=== PATIENT | male | born 1940 | race Caucasian/White ===

== ENCOUNTER 2016-09-22 11:14 | Inpatient (IN) | payer MEDICARE, OTHER ==
[~2016-09-22] VITALS: Ht 180.3 cm; Wt 128.0 kg
[2016-09-22] VITALS (21 sets, daily range): BP systolic 112–185; BP diastolic 72–103; PULSE 96–146; RESP 17–39; TEMP 98.6–99.2; O2SAT 90–95
[~2016-09-22 11:14] MED LIST: B-COTAB41 PO; CALCIUM MG ZINC; FISH1000 PO; HYDR-3580 PO; MULTCAP13 PO; NIAC500T5 PO; OXYB5TAB PO; RED600TA PO; TEST200I12 IM; TRAM100T19 PO; VITA-13 PO; VITA100017 PO
--- NOTE | 2016-09-22 11:25 | PD ---
HPI Chief Complaint: shortness of breath Time Seen by Provider: 11:21 Travel History International Travel<30 days: No Contact w/Intl Traveler<30days: No Traveled to known affect area: No History of Present Illness HPI 76-year-old male with history of no significant past medical issues, presents to the ER for not feeling well over last few days, and today was doing water aerobics when he started having worsening in shortness of breath, coughing, wheezing. He denies any recent fevers, chest pains, or other symptoms. He denies any previous history of shortness of breath. He has been sleeping on one to 2 pillows recently. Modifying Factors: None Associated Signs & Symptoms: Shortness of breath Risk Factors: None PFSH Past Medical History Cancer: No Cardiovascular Problems: No Diabetes: No Diminished Hearing: No Endocrine: No Genitourinary: No Hepatitis: No Hiatal Hernia: No Immune Disorder: No Musculoskeletal: Yes (BACK) Neurologic: Yes (sciatica) Psychiatric: No Respiratory: No Thyroid Disease: No Past Surgical History Abdominal Surgery: Yes (APPY) Joint Replacement: Yes (right ankle fusion) Oral Surgery: Yes (NASAL POLYPS) Social History Alcohol Use: Yes (socially) Tobacco Use: No Substance Use: No Allergies-Medications (Allergen,Severity, Reaction): Coded Allergies: Penicillin (Verified Allergy, Severe, Swelling, 09/22/16) i swell up everywhere Reported Meds & Prescriptions Reported Meds & Active Scripts Active Reported Depotestosterone 200 Mg Vial (Testosterone Cypionate) 200 Mg/Ml Oil 200 Mg IM MONTHLY INJECT 1 ML IM MONTHLY Niacin 500 Mg Tab 500 Mg PO DIRECTED TAKES Sun Red Yeast Rice (Red Yeast Rice Extract) 600 Mg Tab 1,000 Mg PO BID Lortab 7.5/325 Tab (Hydrocodone-Acetaminophen) 7.5 Mg/325 Mg Tab 1 Tab PO BID [Calcium Mg Zinc] 2 Tab DAILY Multi Complete (Multiple Vitamins W/ Minerals) Complete Cap 1 PO DAILY Fish Oil 1,000 Mg Cap 1,000 Mg PO Vitamin D3 (Cholecalciferol) 1,000 Unit Tab 4,000 Unit PO DAILY Vitamin C (Ascorbic Acid) 1,000 Mg Tab 1,000 Mg PO BID Vitamin B-Complex (Multivitamins/Vitamin B Complex) Vitamin Tab 1 Tab PO DAILY Oxybutynin Chloride 5 Mg Tab 5 Mg PO BID Tramadol HCl ER (Tramadol HCl) 100 Mg Tab 50 Mg PO BID Review of Systems Except as stated in HPI: all other systems reviewed are Neg Physical Exam Narrative GENERAL: Well-developed elderly white male in mild respiratory distress. Awake and oriented 3. SKIN: Focused skin assessment warm/dry. HEAD: Atraumatic. Normocephalic. EYES: Pupils equal and round. No scleral icterus. No injection or drainage. ENT: No nasal bleeding or discharge. Mucous membranes pink and moist. NECK: Trachea midline. No JVD. CARDIOVASCULAR: Regular rate and rhythm. No murmur appreciated. RESPIRATORY: Moderate accessory muscle use. With notable wheezes throughout and rails at the bases bilaterally. Breath sounds equal bilaterally. GASTROINTESTINAL: Abdomen soft, non-tender, nondistended. Hepatic and splenic margins not palpable. MUSCULOSKELETAL: No obvious deformities. No clubbing. No cyanosis. Bilateral trace pitting edema the legs. NEUROLOGICAL: Awake and alert. No obvious cranial nerve deficits. Motor grossly within normal limits. Normal speech. PSYCHIATRIC: Appropriate mood and affect; insight and judgment normal. Data Data Last Documented VS Vital Signs Date Time Temp Pulse Resp B/P Pulse Ox O2 Delivery O2 Flow Rate FiO2 09/22/16 12:25 122 32 155/93 94 BiPAP 60 09/22/16 11:31 15 09/22/16 11:25 99.2 Orders Complete Blood Count With Diff (09/22/16 11:21) Comprehensive Metabolic Panel (09/22/16 11:21) B-Type Natriuretic Peptide (09/22/16 11:21) Act Partial Throm Time (Ptt) (09/22/16 11:21) Prothrombin Time / Inr (Pt) (09/22/16 11:21) Magnesium (Mg) (09/22/16 11:21) Ckmb (Isoenzyme) Profile (09/22/16 11:21) Troponin I (09/22/16 11:21) Iv Access Insert/Monitor (09/22/16 11:21) Electrocardiogram (09/22/16 11:21) Ecg Monitoring (09/22/16 11:21) Oximetry (09/22/16 11:21) Oxygen Administration (09/22/16 11:21) Chest, Single Ap (09/22/16 11:21) Sodium Chloride 0.9% Flush (Ns Flush) (09/22/16 11:30) Furosemide Inj (Lasix Inj) (09/22/16 11:30) Arterial Blood Gas (Abg) (09/22/16 ) Resp Bipap / Cpap Non Invas Vt (09/22/16 ) Lactic Acid Sepsis Protocol (09/22/16 11:40) Blood Culture (09/22/16 11:40) Ceftriaxone Inj (Rocephin Inj) (09/22/16 12:03) Azithromycin Inj (Zithromax Inj) (09/22/16 12:03) Admit Order (Ed Use Only) (09/22/16 12:16) Labs Laboratory Tests Test 09/22/16 09/22/16 09/22/16 11:35 11:45 11:50 White Blood Count 12.5 TH/MM3 Red Blood Count 6.53 MIL/MM3 Hemoglobin 19.8 GM/DL Hematocrit 59.3 % Mean Corpuscular Volume 90.9 FL Mean Corpuscular Hemoglobin 30.3 PG Mean Corpuscular Hemoglobin 33.3 % Concent Red Cell Distribution Width 14.0 % Platelet Count 232 TH/MM3 Mean Platelet Volume 10.4 FL Neutrophils (%) (Auto) 74.2 % Lymphocytes (%) (Auto) 16.5 % Monocytes (%) (Auto) 8.2 % Eosinophils (%) (Auto) 0.6 % Basophils (%) (Auto) 0.5 % Neutrophils # (Auto) 9.3 TH/MM3 Lymphocytes # (Auto) 2.1 TH/MM3 Monocytes # (Auto) 1.0 TH/MM3 Eosinophils # (Auto) 0.1 TH/MM3 Basophils # (Auto) 0.1 TH/MM3 CBC Comment DIFF FINAL Differential Comment Prothrombin Time 13.4 SEC Prothromb Time International 1.2 RATIO Ratio Activated Partial 28.9 SEC Thromboplast Time B-Type Natriuretic Peptide 255 PG/ML Lactic Acid Level 2.4 mmol/L Blood Gas Puncture Site RT RADIAL Blood Gas Patient Temperature 98.6 Blood Gas HCO3 27 mmol/L Blood Gas Base Excess 1.4 mmol/L Blood Gas Oxygen Saturation 95 % Arterial Blood pH 7.31 Arterial Blood Partial 56 mmHg Pressure CO2 Arterial Blood Partial 100 mmHG Pressure O2 Arterial Blood Oxygen Content 27.8 Vol % Arterial Blood 0.9 % Carboxyhemoglobin Arterial Blood Methemoglobin 0.7 % Blood Gas Hemoglobin 20.8 G/DL Oxygen Delivery Device NRB Blood Gas Liter Flow 15 L/M MDM Medical Decision Making Medical Screen Exam Complete: Yes Emergency Medical Condition: Yes Medical Record Reviewed: Yes Interpretation(s) Laboratory Tests Test 09/22/16 09/22/16 09/22/16 11:35 11:45 11:50 White Blood Count 12.5 TH/MM3 (4.0-11.0) Red Blood Count 6.53 MIL/MM3 (4.50-5.90) Hemoglobin 19.8 GM/DL (13.0-17.0) Hematocrit 59.3 % (39.0-51.0) Neutrophils (%) (Auto) 74.2 % (16.0-70.0) Monocytes (%) (Auto) 8.2 % (0.0-8.0) Neutrophils # (Auto) 9.3 TH/MM3 (1.8-7.7) Monocytes # (Auto) 1.0 TH/MM3 (0-0.9) Prothrombin Time 13.4 SEC (9.8-11.6) B-Type Natriuretic Peptide 255 PG/ML (0-100) Lactic Acid Level 2.4 mmol/L (0.4-2.0) Blood Gas HCO3 27 mmol/L (22-26) Arterial Blood pH 7.31 (7.380-7.420) Arterial Blood Partial 56 mmHg (38-42) Pressure CO2 Arterial Blood Oxygen Content 27.8 Vol % (12.0-20.0) Blood Gas Hemoglobin 20.8 G/DL (12.0-16.0) Last 24 hours Impressions Chest X-Ray 09/22/16 1121 Signed Impressions: Service Date/Time: Thursday, September 22, 2016 11:48 - CONCLUSION: Moderate congestive failure. Agustín Abrams MD FACR Differential Diagnosis Shortness of breathCOPD versus pneumonia versus CHF versus bronchitis Narrative Course Chest x-ray shows bilateral pulmonary edema. Lasix was given in the ER and patient was put on BiPAP. At this point, lab work returns showing significant white count elevation of uncertain etiology. Cultures were drawn and antibiotics were given as a precaution. Patient has no previous history of CHF. Patient will need further evaluation. Case was discussed with Dr. Rodas for admission. He has recommended ICU admission especially with patient being on BiPAP. Aggregate critical care time was 25 minutes. Time to perform other separately billable procedures was not included in the critical care time. My time did not include minutes spent treating any other patients simultaneously or on activities that did not directly contribute to the patient's treatment. The services I provided to this patient were to treat and/or prevent clinically significant deterioration that could result in: Respiratory failure, sepsis, I provided critical care services requiring my management, as noted below: Chart data review, documentation time, medication orders and management, vital sign assessments/reviewing monitor data, ordering and reviewing lab tests, ordering and interpreting/reviewing x-rays and diagnostic studies, care of the patient and discussion of the patient with the admitting physicians. Sepsis Criteria SIRS Criteria (2 or more): Heart rate over 90, RR > 20 or PaCO2 < 32, WBC > 05516, < 4000 or > 10% bands Severe Sepsis (+one): Lactate >2 Diagnosis Primary Impression: Pulmonary edema Additional Impressions: Leukocytosis Sepsis Admitting Information Admitting Physician Requests: it Saba Almodovar MD Sep 22, 2016 11:25
[2016-09-22] MEDS ORDERED: SODIUM CHLORIDE 0.9% FLUSH 10 ML FLUSH IVF PRN (11:30)
[2016-09-22] MEDS ORDERED: FUROSEMIDE 40 MG/4 ML VIAL IVP ONE (11:30)
[2016-09-22 11:48] LABS: AUTOMATED NEUTROPHIL # 9.3 TH/MM3 (1.8-7.7); BASOPHIL # 0.1 TH/MM3 (0-0.2); BASOPHIL % 0.5 % (0.0-2.0); EOSINOPHIL # 0.1 TH/MM3 (0-0.4); EOSINOPHIL % 0.6 % (0.0-4.0); HEMATOCRIT 59.3 % (39.0-51.0); HEMO FLAGS DIFF FINAL; LYMPH % 16.5 % (9.0-44.0); LYMPHOCYTE # 2.1 TH/MM3 (1.0-4.8); MEAN CELL VOLUME 90.9 FL (80.0-100.0); MEAN CORPUSCULAR HEMOGLOBIN 30.3 PG (27.0-34.0); MEAN CORPUSCULAR HGB CONC 33.3 % (32.0-36.0); MONO % 8.2 % (0.0-8.0); NEUT % 74.2 % (16.0-70.0); PLATELET COUNT 232 TH/MM3 (150-450); RED BLOOD COUNT 6.53 MIL/MM3 (4.50-5.90); WHITE BLOOD COUNT 12.5 TH/MM3 (4.0-11.0)
[2016-09-22 11:57] LABS: INTERNATIONAL NORMALIZED RATIO 1.2 RATIO; PROTHROMBIN TIME - PATIENT 13.4 SEC (9.8-11.6)
[2016-09-22 11:58] LABS: APTT (PATIENT) 28.9 SEC (24.3-30.1)
[2016-09-22 12:00] LABS: BLOOD GAS BASE EXCESS 1.4 mmol/L (-2-2); BLOOD GAS CARBOXYHEMOGLOBIN 0.9 % (0-4); BLOOD GAS HCO3 27 mmol/L (22-26); BLOOD GAS METHEMOGLOBIN 0.7 % (0-2); BLOOD GAS O2 HGB SATURATION 95 % (90-100); BLOOD GAS OXYGEN CONTENT 27.8 Vol % (12.0-20.0); BLOOD GAS PCO2 56 mmHg (38-42); BLOOD GAS PO2 100 mmHG (61-120); BLOOD GAS TOTAL HGB 20.8 G/DL (12.0-16.0); TEMP CORR TO 98.6
[2016-09-22 12:01] LABS: CRITICAL VALUE YES; DRAW SITE RT RADIAL; LITER FLOW 15 L/M; NUMBER OF ARTERIAL PUNCTURES 1; OXYGEN DEVICE NRB; STAT YES; ULNAR PULSE PRESENT
[2016-09-22] MEDS ORDERED: AZITHROMYCIN INJ 500 MG in SODIUM CHLOR 0.9% 250 ML INJ 250 ML IV STA (12:03)
[2016-09-22] MEDS ORDERED: cefTRIAXone INJ 2,000 MG in SODIUM CHLORIDE 0.9% INJ 100 ML IV STA (12:03)
--- NOTE | 2016-09-22 12:07 | RADRPT ---
EXAM DATE/TIME: 09/22/2016 11:48 [facility] COMPARISON: CHEST SINGLE AP, January 12, 2013, 4:35. INDICATIONS : Shortness of breath. MEDICAL HISTORY : None. SURGICAL HISTORY : None. ENCOUNTER: Initial ACUITY: 1 day PAIN SCORE: 0/10 LOCATION: Bilateral chest FINDINGS: Moderate congestive failure is present with cardiomegaly. There is no pleural effusion or other cons olidation. The portion of the bony skeleton visualized is unremarkable. CONCLUSION: Moderate congestive failure. Agustín Abrams MD FACR on September 22, 2016 at 12:04 Board Certified Radiologist. This report was verified electronically.
[2016-09-22 12:36] LABS: ALKALINE PHOSPHATASE 60 U/L (45-117); ALT (GPT) 43 U/L (12-78); ANION GAP 8 MEQ/L (5-15); AST (GOT) 71 U/L (15-37); BICARBONATE 28.2 MEQ/L (21.0-32.0); BLOOD UREA NITROGEN 15 MG/DL (7-18); CHLORIDE 103 MEQ/L (98-107); CREATINE KINASE 232 U/L (39-308); GLOMERULAR FILTRATION RATE 52 ML/MIN (>89); SODIUM (NA) 139 MEQ/L (136-145); TOTAL BILIRUBIN ADULT 0.8 MG/DL (0.2-1.0)
[2016-09-22 12:38] LABS: POTASSIUM 4.6 MEQ/L (3.5-5.1)
[2016-09-22] MEDS ORDERED: TRAM50TA PO (12:40)
[2016-09-22] MEDS ORDERED: TEST1INJ3 IM (12:40)
[2016-09-22 12:56] LABS: CKMB 13.1 NG/ML (0.5-3.6)
[2016-09-22] MEDS ORDERED: OXYB5TAB10 PO (13:00)
[2016-09-22] MEDS ORDERED: ALPRAZolam 0.25 MG TAB PO PRN (13:00)
[2016-09-22] MEDS ORDERED: SODIUM CHLORIDE 0.9% FLUSH 10 ML FLUSH IV FLUSH PRN (13:00)
[2016-09-22] MEDS: ASPIRIN 325 MG TAB PO SCH (13:38)
[2016-09-22] MEDS: ENOXAPARIN SODIUM 120 MG/0.8 ML SYRINGE SQ SCH (13:39)
--- NOTE | 2016-09-22 13:41 | HHI.HP ---
HPI Service [facility] Hospitalists Primary Care Physician Dr. Olena Whitley Admission Diagnosis new onset CHF/respiratory distress/hypoxia Chief Complaint: SOB Travel History International Travel<30 Days: No Contact w/Intl Traveler <30 Da: No Traveled to Known Affected Are: No History of Present Illness Mr. 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 He states that yesterday he started noticing more SOB with exertion. Then today he was doing water aerobics when he started having worsening shortness of breath, coughing, wheezing. This prompted [facility] to be called and pt was brought to the ED for further workup. Chest x-ray showed bilateral pulmonary edema. ABG noted pCO2 56, pH 7.31. Pt was given Lasix 40mg IV in the ED and patient was put on BiPAP. Cultures were drawn and antibiotics were given in the ED secondary to elevated WBC count. Patient has no previous history of CHF. Upon arrival his HR was noted to be in the 130-140's and currently on telemetry he is in the 110's but appears to be A. flutter. Pt denies any recent fevers, cough, congestion, chest pains, or palpitations. He denies any previous history of shortness of breath. He has been sleeping on one to 2 pillows recently. He has had some weight loss over the last 6 months which has been intentional. He reports having lost 25-30lbs. He does not feel that his legs are swollen. He reports that with regard to his polycythemia he had been referred for phlebotomy but that not followup on that. Review of Systems Constitutional: DENIES: Fever, Chills, Dizziness Respiratory: COMPLAINS OF: Shortness of breath, DENIES: Cough, Sputum production Cardiovascular: COMPLAINS OF: Dyspnea on Exertion, DENIES: Chest pain, Palpitations, Lower Extremity Edema Gastrointestinal: DENIES: Abdominal pain, Constipation, Nausea, Vomiting Genitourinary: DENIES: Hematuria, Dysuria Musculoskeletal: DENIES: Joint pain, Back pain Integumentary: DENIES: Rash Neurologic: DENIES: Headache Psychiatric: DENIES: Confusion Past Family Social History Past Medical History Secondary polycythemia vera (?secondary to chronic testosterone use) HTN Chronic LE edema Obesity Hypogonadism Hyperlipidemia (LDL 120 in 01/2016) Lumbar stenosis/radiculopathy Multinodular non-toxic goiter Hx of tobacco use B12 deficiency Past Surgical History Left total hip arthroplasty Ankle surgery Reported Medications Ditropan (Oxybutynin Chloride) 5 Mg Tab 5 Mg PO Testosterone Cypionate Inj (Testosterone Cypionate) 100 Mg/Ml Inj 200 Mg IM MONTHLY Tramadol (Tramadol HCl) 50 Mg Tab 50 Mg PO PRN Allergies: Coded Allergies: Penicillin (Verified Allergy, Severe, Swelling, 09/22/16) i swell up everywhere Family History Father with hx of thyroid cancer and CAD/DE Social History Hx of heavy tobacco use, smoked 3-4ppd x 45 years, quit in 2002 Denies any alcohol or illicit drug use since 2013 Pt has 3 living children, 2 in [place], 1 in [facility] Physical Exam Vital Signs Vital Signs Date Time Temp Pulse Resp B/P Pulse Ox O2 Delivery O2 Flow Rate FiO2 09/22/16 12:25 122 32 155/93 94 BiPAP 60 09/22/16 11:50 96 BiPAP 60 09/22/16 11:31 140 39 95 Non-Rebreather 09/22/16 11:31 96 Non-Rebreather 15 100 09/22/16 11:27 139 29 180/103 93 09/22/16 11:25 99.2 146 29 185/103 93 Non-Rebreather Physical Exam GENERAL: This is a well-nourished, well-developed patient, on BiPAP. HEENT: Atraumatic. Normocephalic. No temporal or scalp tenderness. No scleral icterus. On BiPAP. NECK: Trachea midline. Mild JVD bilaterally. CARDIO: Tachy, irregular RESP: Decreased BS bilaterally. ABD: +BS, soft, non-tender, nondistended. EXT: Bilateral LE nonpitting edema. NEURO: Awake and alert. Motor and sensory grossly within normal limits. Normal speech. Laboratory Laboratory Tests Test 09/22/16 09/22/16 09/22/16 11:35 11:45 11:50 White Blood Count 12.5 Red Blood Count 6.53 Hemoglobin 19.8 Hematocrit 59.3 Mean Corpuscular Volume 90.9 Mean Corpuscular Hemoglobin 30.3 Mean Corpuscular Hemoglobin 33.3 Concent Red Cell Distribution Width 14.0 Platelet Count 232 Mean Platelet Volume 10.4 Neutrophils (%) (Auto) 74.2 Lymphocytes (%) (Auto) 16.5 Monocytes (%) (Auto) 8.2 Eosinophils (%) (Auto) 0.6 Basophils (%) (Auto) 0.5 Neutrophils # (Auto) 9.3 Lymphocytes # (Auto) 2.1 Monocytes # (Auto) 1.0 Eosinophils # (Auto) 0.1 Basophils # (Auto) 0.1 CBC Comment DIFF FINAL Differential Comment Prothrombin Time 13.4 Prothromb Time International 1.2 Ratio Activated Partial 28.9 Thromboplast Time Sodium Level 139 Potassium Level 4.6 Chloride Level 103 Carbon Dioxide Level 28.2 Anion Gap 8 Blood Urea Nitrogen 15 Creatinine 1.32 Estimat Glomerular Filtration 52 Rate Random Glucose 124 Calcium Level 9.6 Magnesium Level 2.0 Total Bilirubin 0.8 Aspartate Amino Transf 71 (AST/SGOT) Alanine Aminotransferase 43 (ALT/SGPT) Alkaline Phosphatase 60 Total Creatine Kinase 232 Creatine Kinase MB 13.1 Troponin I 2.91 B-Type Natriuretic Peptide 255 Total Protein 7.5 Albumin 3.6 Lactic Acid Level 2.4 Blood Gas Puncture Site RT RADIAL Blood Gas Patient Temperature 98.6 Blood Gas HCO3 27 Blood Gas Base Excess 1.4 Blood Gas Oxygen Saturation 95 Arterial Blood pH 7.31 Arterial Blood Partial 56 Pressure CO2 Arterial Blood Partial 100 Pressure O2 Arterial Blood Oxygen Content 27.8 Arterial Blood 0.9 Carboxyhemoglobin Arterial Blood Methemoglobin 0.7 Blood Gas Hemoglobin 20.8 Oxygen Delivery Device NRB Blood Gas Liter Flow 15 Date/Time Procedure Status Source Growth 09/22/16 11:55 Aerobic Blood Culture Received Blood Peripheral Pending 09/22/16 11:55 Anaerobic Blood Culture Received Blood Peripheral Pending Result Diagram: 09/22/16 1135 09/22/16 1135 Imaging Last Impressions Chest X-Ray 09/22/16 1121 Signed Impressions: Service Date/Time: Thursday, September 22, 2016 11:48 - CONCLUSION: Moderate congestive failure. 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 - Chest x-ray showed bilateral pulmonary edema. - ABG noted pCO2 56, pH 7.31. Pt was given Lasix 40mg IV in the ED and patient was put on BiPAP. - Cultures were drawn and antibiotics were given in the ED secondary to elevated WBC count. - Upon arrival his HR was noted to be in the 130-140's and currently on telemetry he is in the 110's but appears to be A. flutter. - Pts troponin was noted to be elevated at 2.91 and CKMB 13.1 - Consult Cardiology, case discussed between Dr. Rodas and Dr. Quinones , pt without cardiac history but does have risk factors for CAD with previous heavy tobacco use, obesity - Serial CE and EKGs - 2D echo - Give ASA and Lovenox 120mg Q12H - Wean off BiPAP as tolerated - Cont. Lasix 40mg IV BID - Monitor BMP - Telemetry, HR seems to be decreasing as his breathing improves, will continue to monitor - Supportive care (2) Elevated troponin Status: Acute Plan: - See above. 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 - Monitor CBC Assessment and Plan Patient examined. Assessment and plan formulated with Serene Kothari PA-C. I agree with the above. AMI and acute systolic chf. polycythemia with pcp diagnosis of polycythemia related to testosterone. pt was supposed to have phlebotomy but he was angered by the nurse who was to perform it and so he left per his account. I spoke to cardiology as I was concerned with some st elevation in precordial leads. ?thrombosis related to the polycythemia. we gave asa and lovenox. stat echo shows low ef of 25%. cardiology will call hematology to decide if urgent phlebotomy should be done. No cp. He is being weaned of bipap. iv lasix Physician Certification 2 Midnight Certification Type: Admission for Inpatient Services Order for Inpatient Services The services are ordered in accordance with Medicare regulations or non- Medicare payer requirements, as applicable. In the case of services not specified as inpatient-only, they are appropriately provided as inpatient services in accordance with the 2-midnight benchmark. Estimated LOS (days): 3 3 days is the estimated time the patient will need to remain in the hospital, assuming treatment plan goals are met and no additional complications. Post-Hospital Plan: Not yet determined Problem Qualifiers (1) Pulmonary edema: Qualified Code: J81.0 - Acute pulmonary edema Serene Kothari Sep 22, 2016 13:41 Jaron Rodas MD Sep 22, 2016 20:02
[2016-09-22] MEDS ORDERED: ACETAMINOPHEN 325 MG TAB PO PRN (13:45)
[2016-09-22] MEDS ORDERED: ONDANSETRON HCL 4 MG/2 ML VIAL IV PRN (13:45)
[2016-09-22 13:48] LABS: LACTIC ACID GHOST NOT REPORTABLE
[2016-09-22 16:30] LABS: CKMB 76.9 NG/ML (0.5-3.6)
--- NOTE | 2016-09-22 17:17 | ECHRPT ---
Indication: Transient cerebral ischemic attack, unspecified CONCLUSIONS Normal left ventricular size. There is assymetric septal hypertrophy. The left ventricular systolic function is severely reduced with an estimated ejection fraction in th e range of 20-25%. poor image quality Mild mitral valve regurgitation. There is mild tricuspid valve regurgitation. BP: / HR: Rhythm: MEASUREMENTS (Male / Female) Normal Values Technical Quality:Fair 2D ECHO LV Diastolic Diameter PLAX 5.7 cm 4.2 - 5.9 / 3.9 - 5.3 cm LV Systolic Diameter PLAX 5.2 cm IVS Diastolic Thickness 1.7 cm 0.6 - 1.0 / 0.6 - 0.9 cm LVPW Diastolic Thickness 1.0 cm 0.6 - 1.0 / 0.6 - 0.9 cm LV Relative Wall Thickness 0.5 RV Internal Dim ED PLAX 2.9 cm M-MODE Aortic Root Diameter MM 4.2 cm LA Systolic Diameter MM 3.2 cm LA Ao Ratio MM 0.8 AV Cusp Separation MM 1.7 cm FINDINGS LEFT VENTRICLE Normal left ventricular size. There is assymetric septal hypertrophy. The left ventricular systolic function is severely reduced with an estimated ejection fraction in th e range of 20-25%. MITRAL VALVE Structurally normal mitral valve. Mild mitral valve regurgitation. TRICUSPID VALVE Structurally normal tricuspid valve. There is mild tricuspid valve regurgitation. Uziel Worley MD, FACC, [facility] [place] (Electronically Signed) Final Date:22 September 2016 17:16
[2016-09-22] MEDS ORDERED: FUROSEMIDE 40 MG/4 ML VIAL IV PUSH SCH (18:00)
[2016-09-22] MEDS ORDERED: PRASUGREL 10 MG TAB PO ONE (18:45)
[2016-09-22] MEDS ORDERED: PILL SPLITTER OTHER PRN (19:00)
[2016-09-22 20:40] LABS: CKMB 133.1 NG/ML (0.5-3.6)
[2016-09-22] MEDS ORDERED: POTASSIUM CHLORIDE 20 MEQ CONTROLLED RELEASE TAB PO SCH (21:00)
[2016-09-22] MEDS ORDERED: SODIUM CHLOR 0.9% 250 ML INJ 250 ML IV ONE (21:30)
[2016-09-22] MEDS: ATORVASTATIN 40 MG TAB PO SCH (21:30)
[2016-09-22] MEDS: CARVEDILOL 3.125 MG TAB PO SCH (21:30)
[2016-09-22] MEDS: SODIUM CHLORIDE 0.9% FLUSH 10 ML FLUSH IV FLUSH SCH (21:31)
--- NOTE | 2016-09-22 21:43 | MB ---
cc: BALDEMAR MORA MD DATE OF CONSULTATION: 09/22/2016. REASON FOR CONSULTATION: Elevated troponin. HISTORY OF PRESENT ILLNESS: Mrs. Ricketts is a 76-year-old man who presented to the emergency room with shortness of breath. He reports to me that it started this morning. I recognize this is somewhat inconsistent with the previous emergency room record. The patient reports that he has not had any significant chest pain. He is currently feeling great. PAST MEDICAL HISTORY: Past medical history significant for: 1. Polycythemia. 2. Hypertension. 3. Lower extremity edema. 4. B12 deficiency. PAST SURGICAL HISTORY: Left total hip arthroplasty. OUTPATIENT MEDICATIONS: 1. Ditropan. 2. Testosterone. 3. Tramadol. ALLERGIES: PENICILLIN. FAMILY HISTORY: Positive for thyroid cancer and myocardial infarction. SOCIAL HISTORY: The patient is a former smoker. REVIEW OF SYSTEMS: Except for what is mentioned in the history of present illness, all twelve systems are negative. PHYSICAL EXAMINATION: VITAL SIGNS: Current vital signs are 100, 20, 113/79. GENERAL: In general, he is an obese man who is in no apparent distress. NECK: The neck is free from jugular venous distention. LUNGS: The lungs are bilaterally clear to auscultation. CARDIOVASCULAR: On cardiovascular examination, he has a normal S1 and S2. I do not appreciate any murmurs, rubs or gallops. ABDOMEN: The abdomen is soft. EXTREMITIES: Free from edema. CARDIOLOGY STUDIES: Echocardiogram shows an ejection fraction of 20% to 25%. EKG shows sinus rhythm with anterior S-T elevation LABORATORY DATA: Lab values significant for a white count of 12.5, hemoglobin of 19.8, platelet count of 232,000. The initial troponin was 2.9 and subsequent troponin was 13 with a CK-MB percent of 10. IMPRESSION: 1. Acute myocardial infarction - the patient does have a history of polycythemia. The risks and benefits of cardiac catheterization were discussed with the patient, particularly in light of his polycythemia, which does make both bleeding and thrombotic complications higher. He declines intervention. He does wish to be managed medically. 2. Polycythemia - An urgent consult has been placed to hematology. 3. Cardiomyopathy - The patient has an ischemic cardiomyopathy and will be started on beta blockade and PRICE inhibitors. Annmarie Ann/JCC /6:41 PM /9:36 PM
[2016-09-22] MEDS: OXYBUTYNIN CHLORIDE 5 MG TAB PO SCH (21:53)
--- NOTE | 2016-09-22 23:37 | MB ---
cc: LAWRENCE HAND DATE OF CONSULTATION 09/22/16 REASON FOR CONSULTATION A 76-year-old male with an acute myocardial infarction, congestive heart failure and polycythemia. PATIENT PROFILE The patient is a 76-year white male. He is . He has been twice. He has three children, two sons and one daughter. He was born in [place] and has lived in [place] for 20 years. 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 The patient stopped smoking 18 years ago and had smoked three to four packs of cigarettes per day for 30 years. Alcohol consists of two drinks per day. HISTORY OF PRESENT ILLNESS The patient is a 76-year-old male who describes himself as being in excellent health. He developed shortness of breath when he went to the [facility] and knew that there was something wrong. He had had increasing shortness of breath over a day or two. When he presented to the emergency room, he was felt to have an acute myocardial infarction with congestive heart failure. He was found to be polycythemic. On 09/22/2016 hemoglobin 19.8, hematocrit 59, white count 12,500, platelets 232,000 with a normal differential. In 2013, he had a hemoglobin of 16.8. In January of 2013, he had a hemoglobin of 17. He has no history of polycythemia vera. He does have some degree of chronic obstructive pulmonary disease. What is most important is the fact that for many years he has received testosterone injections. These injections have been administered every three weeks. Three months ago, his physician told him that he should undergo phlebotomies. At that time, the injections of testosterone was spaced out from every three weeks to every four weeks. The patient did not pursue the phlebotomies. PAST SURGICAL HISTORY 1. Removal of nasal polyps 2. Left hip replacement 3. Right ankle fracture. PAST MEDICAL HISTORY 1. Obesity 2. Arthritis 3. Urinary frequency, possibly from benign prostatic hypertrophy. MEDICATIONS Prior to admission 1. Oxybutynin 5 mg p.o. b.i.d. 2. Testosterone injections. The dose is listed as 200 mg but the patient is not sure if this is correct 3. Tramadol 50 mg p.o. q.8 h p.r.n. pain. ALLERGIES PENICILLIN FAMILY HISTORY Father 95. Mother 94. The patient has two sisters who are living. There is no history of any type of blood problem. REVIEW OF SYSTEMS No change in vision or hearing. He denies any chest pain but has had shortness of breath for the past several days. No change in bowel habits. No melena or hematochezia. Denies problems with urination. Minor arthritic pains. Review of systems otherwise unremarkable. LABORATORY DATA Additional laboratory studies - lytes, BUN and creatinine are unremarkable. IMAGING STUDIES Chest x-ray dated 09/22/2016 shows moderate congestive heart failure present with cardiomegaly. There is no pleural effusion or other consolidation. PHYSICAL EXAMINATION GENERAL: An obese gentleman. He is short of breath with mild exertion. VITAL SIGNS: Blood pressure is 113/80, respiratory rate is 24, pulse is 115, afebrile, O2 sat 91%. HEENT: Head is normocephalic. Sclerae and conjunctivae are normal. Oropharynx unremarkable. No adenopathy. HEART: Regular rhythm, rate 115. LUNGS: Few rales at the bases. ABDOMEN: Obese. No hepatosplenomegaly. EXTREMITIES: Trace edema. MUSCULOSKELETAL: No bone pain. NEUROLOGIC: No weakness. Cognition, affect normal. SKIN: Unremarkable. ASSESSMENT The patient has polycythemia. The Hemoglobin and hematocrit are elevated. The most likely explanation is testosterone. Another contributing factor would be chronic obstructive pulmonary disease. Primary thrombocytosis is less likely. RECOMMENDATIONS Given the congestive heart failure, polycythemia and myocardial infarction, I am going to remove a unit of blood. In order to prevent him from becoming hypotensive, he will receive 250 mL of normal saline solution over two hours to begin at the same time as the phlebotomy. He will have a CBC and platelet count tomorrow. I would like to bring down his hemoglobin and hematocrit to a more physiologic range. I very much doubt that he has polycythemia vera, but will order a KINGSLEY 2 mutation test. I told him that he should not take testosterone. He is in agreement. I have contacted Dr. Prisca Quinones who is his design architect and I have reviewed my recommendations with her. MD GERARD Santiago/ /9:38 PM /11:21 PM [email or web address]
[2016-09-23] VITALS (36 sets, daily range): BP systolic 85–157; BP diastolic 56–95; PULSE 85–100; RESP 10–37; TEMP 97.8–98.6; O2SAT 87–95
[2016-09-23] MEDS: ENOXAPARIN SODIUM 120 MG/0.8 ML SYRINGE SQ SCH ×2 (02:07→14:27)
[2016-09-23 04:54] LABS: AUTOMATED NEUTROPHIL # 10.6 TH/MM3 (1.8-7.7); BASOPHIL % 0.2 % (0.0-2.0); EOSINOPHIL % 0.2 % (0.0-4.0); HEMATOCRIT 54.9 % (39.0-51.0); HEMO FLAGS DIFF FINAL; LYMPH % 10.5 % (9.0-44.0); LYMPHOCYTE # 1.4 TH/MM3 (1.0-4.8); MEAN CELL VOLUME 89.8 FL (80.0-100.0); MEAN CORPUSCULAR HGB CONC 33.4 % (32.0-36.0); MONO % 10.8 % (0.0-8.0); NEUT % 78.3 % (16.0-70.0); PLATELET COUNT 179 TH/MM3 (150-450); RED BLOOD COUNT 6.11 MIL/MM3 (4.50-5.90); RED CELL DISTRIBUTION WIDTH 14.4 % (11.6-17.2); WHITE BLOOD COUNT 13.5 TH/MM3 (4.0-11.0)
[2016-09-23 05:20] LABS: BICARBONATE 29.9 MEQ/L (21.0-32.0); MAGNESIUM 1.8 MG/DL (1.5-2.5); POTASSIUM 3.8 MEQ/L (3.5-5.1)
[2016-09-23 05:22] LABS: HDL CHOLESTEROL 32.9 MG/DL (40.0-60.0)
--- NOTE | 2016-09-23 05:34 | RADRPT ---
EXAM DATE/TIME: 09/23/2016 04:13 [place] COMPARISON: CHEST SINGLE AP, September 22, 2016, 11:48. INDICATIONS : Shortness of breath, possible pulmonary disease. MEDICAL HISTORY : Congestive heart failure. SURGICAL HISTORY : None. ENCOUNTER: Subsequent ACUITY: 2 days PAIN SCORE: 0/10 LOCATION: Bilateral chest FINDINGS: Pulmonary edema pattern improved from September 22 with minimal residual basilar opacity. No significant e ffusion. Heart size enlarged. Mildly tortuous aorta. CONCLUSION: Improved pulmonary edema pattern since September 22. Elías Lopez MD on September 23, 2016 at 5:32 Board Certified Radiologist. This report was verified electronically.
--- NOTE | 2016-09-23 08:44 | PD.CARD.PN ---
Subjective Subjective Remarks Pt without complaints- I feel great Objective Medications Current Medications Medications (Trade) Dose Ordered Sig/Melissa Route Start Time Stop Time Status Last Admin (NS Flush) 2 ml BID IV FLUSH 09/22/16 21:00 09/22/16 21:31 (NS Flush) 2 ml UNSCH PRN IV FLUSH 09/22/16 13:00 (Aspirin) 325 mg DAILY PO 09/22/16 13:00 09/22/16 13:38 ([place] 7.5-325 Mg) 1 tab Q4H PRN PO 09/22/16 13:00 (Protonix) 40 mg DAILY PO 09/23/16 09:00 (Xanax) 0.25 mg TID PRN PO 09/22/16 13:00 (Lasix Inj) 40 mg BID@,18 IV PUSH 09/22/16 18:00 09/22/16 17:43 (Lovenox Inj) 120 mg Q12H SQ 09/22/16 14:00 09/23/16 02:07 (Ditropan) 5 mg BID PO 09/22/16 21:00 09/22/16 21:53 (Tylenol) 650 mg Q4H PRN PO 09/22/16 13:45 (Zofran Inj) 4 mg Q6H PRN IV 09/22/16 13:45 (Effient) 10 mg DAILY PO 09/23/16 09:00 (Lipitor) 40 mg HS PO 09/22/16 21:00 09/22/16 21:30 (KCl) 20 meq Q12HR PO 09/22/16 21:00 09/22/16 21:30 (Coreg) 3.125 mg Q12HR PO 09/22/16 21:00 09/22/16 21:30 (Prinivil) 2.5 mg DAILY PO 09/23/16 09:00 Miscellaneous 1 ea 1 ea UNSCH PRN OTHER 09/22/16 19:00 (NS 250 ml Inj) 250 ml @ 250 mls/hr BOLUS ONCE IV 09/23/16 08:30 09/23/16 09:29 UNV Vital Signs / I&O Vital Signs Date Time Temp Pulse Resp B/P Pulse Ox O2 Delivery O2 Flow Rate FiO2 09/23/16 06:52 93 Nasal Cannula 3.00 09/23/16 06:00 90 09/23/16 04:00 98.4 93 25 114/72 93 17 04:00 93 09/23/16 02:00 93 09/23/16 00:00 96 09/23/16 00:00 98.6 97 21 112/72 94 17 22:00 101 17 20:00 115 1617 20:00 98.7 115 33 112/75 94 17 19:24 93 Nasal Cannula 3.00 09/22/16 18:40 108 1617 18:21 105 1617 18:00 104 1617 17:40 101 33 113/79 91 1617 17:40 101 17 17:20 103 1617 17:20 103 25 117/81 93 1617 17:00 96 18 113/72 90 1617 17:00 96 17 16:40 108 24 124/82 93 1617 16:40 108 1617 16:40 108 24 124/82 93 1617 16:40 108 1617 16:20 101 1617 16:20 101 17 117/80 90 1617 16:20 101 17 117/80 90 1617 16:20 101 1617 16:00 110 17 16:00 110 31 122/83 92 1617 16:00 110 31 122/83 92 1617 16:00 110 17 15:50 98.6 1617 15:44 90 Nasal Cannula 4.00 17 14:30 95 Nasal Cannula 4.00 09/22/16 12:25 122 32 155/93 94 BiPAP 60 1617 11:50 95 60 16/17 11:50 96 BiPAP 60 09/22/17 11:31 140 39 95 Non-Rebreather 17 11:31 96 Non-Rebreather 15 100 17 11:27 139 29 180/103 93 1617 11:25 99.2 146 29 185/103 93 Non-Rebreather I/O 09/22/16 09/22/16 09/22/16 09/23/16 09/23/16 09/23/16 07:00 15:00 23:00 07:00 15:00 23:00 Intake Total 240 ml 730 ml Output Total 300 ml 650 ml 750.00 ml Balance -300 ml -410 ml -20.00 ml Intake Oral 240 ml 480 ml IV Total 250 ml Output Urine Total 300 ml 650 ml 450 ml Blood Draw 300.00 ml # Voids 1 Physical Exam GENERAL: Well developed, well nourished. No acute distress. HEENT: Jugular venous pressure is normal. CHEST: Lungs clear to auscultation bilaterally. Unlabored respiratory effort. CARDIAC: Regular rate and rhythm without S3, S4, or murmur. ABDOMEN: Soft, nontender, no hepatosplenomegaly. Bowel sounds present. EXTREMITIES: No clubbing, cyanosis, or edema. Laboratory Laboratory Tests Test 09/22/16 09/22/16 09/22/16 09/22/16 11:35 11:45 11:50 14:37 White Blood Count 12.5 TH/MM3 Red Blood Count 6.53 MIL/MM3 Hemoglobin 19.8 GM/DL Hematocrit 59.3 % Mean Corpuscular Volume 90.9 FL Mean Corpuscular Hemoglobin 30.3 PG Mean Corpuscular Hemoglobin 33.3 % Concent Red Cell Distribution Width 14.0 % Platelet Count 232 TH/MM3 Mean Platelet Volume 10.4 FL Neutrophils (%) (Auto) 74.2 % Lymphocytes (%) (Auto) 16.5 % Monocytes (%) (Auto) 8.2 % Eosinophils (%) (Auto) 0.6 % Basophils (%) (Auto) 0.5 % Neutrophils # (Auto) 9.3 TH/MM3 Lymphocytes # (Auto) 2.1 TH/MM3 Monocytes # (Auto) 1.0 TH/MM3 Eosinophils # (Auto) 0.1 TH/MM3 Basophils # (Auto) 0.1 TH/MM3 CBC Comment DIFF FINAL Differential Comment Prothrombin Time 13.4 SEC Prothromb Time International 1.2 RATIO Ratio Activated Partial 28.9 SEC Thromboplast Time Sodium Level 139 MEQ/L Potassium Level 4.6 MEQ/L Chloride Level 103 MEQ/L Carbon Dioxide Level 28.2 MEQ/L Anion Gap 8 MEQ/L Blood Urea Nitrogen 15 MG/DL Creatinine 1.32 MG/DL Estimat Glomerular Filtration 52 ML/MIN Rate Random Glucose 124 MG/DL Calcium Level 9.6 MG/DL Magnesium Level 2.0 MG/DL Total Bilirubin 0.8 MG/DL Aspartate Amino Transf 71 U/L (AST/SGOT) Alanine Aminotransferase 43 U/L (ALT/SGPT) Alkaline Phosphatase 60 U/L Total Creatine Kinase 232 U/L 766 U/L Creatine Kinase MB 13.1 NG/ML 76.9 NG/ML Troponin I 2.91 NG/ML 13.70 NG/ML B-Type Natriuretic Peptide 255 PG/ML Total Protein 7.5 GM/DL Albumin 3.6 GM/DL Lactic Acid Level 2.4 mmol/L Blood Gas Puncture Site RT RADIAL Blood Gas Patient Temperature 98.6 Blood Gas HCO3 27 mmol/L Blood Gas Base Excess 1.4 mmol/L Blood Gas Oxygen Saturation 95 % Arterial Blood pH 7.31 Arterial Blood Partial 56 mmHg Pressure CO2 Arterial Blood Partial 100 mmHG Pressure O2 Arterial Blood Oxygen Content 27.8 Vol % Arterial Blood 0.9 % Carboxyhemoglobin Arterial Blood Methemoglobin 0.7 % Blood Gas Hemoglobin 20.8 G/DL Oxygen Delivery Device NRB Blood Gas Liter Flow 15 L/M Creatine Kinase MB % 10.0 % Test 09/22/16 09/22/16 09/23/16 15:30 19:26 04:17 Nasal Screen MRSA (PCR) MRSA NOT DETECTED Total Creatine Kinase 1145 U/L Creatine Kinase MB 133.1 NG/ML Creatine Kinase MB % 11.6 % Troponin I 27.60 NG/ML White Blood Count 13.5 TH/MM3 Red Blood Count 6.11 MIL/MM3 Hemoglobin 18.3 GM/DL Hematocrit 54.9 % Mean Corpuscular Volume 89.8 FL Mean Corpuscular Hemoglobin 30.0 PG Mean Corpuscular Hemoglobin 33.4 % Concent Red Cell Distribution Width 14.4 % Platelet Count 179 TH/MM3 Mean Platelet Volume 9.8 FL Neutrophils (%) (Auto) 78.3 % Lymphocytes (%) (Auto) 10.5 % Monocytes (%) (Auto) 10.8 % Eosinophils (%) (Auto) 0.2 % Basophils (%) (Auto) 0.2 % Neutrophils # (Auto) 10.6 TH/MM3 Lymphocytes # (Auto) 1.4 TH/MM3 Monocytes # (Auto) 1.5 TH/MM3 Eosinophils # (Auto) 0.0 TH/MM3 Basophils # (Auto) 0.0 TH/MM3 CBC Comment DIFF FINAL Differential Comment Sodium Level 141 MEQ/L Potassium Level 3.8 MEQ/L Chloride Level 102 MEQ/L Carbon Dioxide Level 29.9 MEQ/L Anion Gap 9 MEQ/L Blood Urea Nitrogen 16 MG/DL Creatinine 1.13 MG/DL Estimat Glomerular Filtration 63 ML/MIN Rate Random Glucose 99 MG/DL Lactic Acid Level 1.8 mmol/L Calcium Level 9.2 MG/DL Magnesium Level 1.8 MG/DL Triglycerides Level 89 MG/DL Cholesterol Level 162 MG/DL LDL Cholesterol 111 MG/DL HDL Cholesterol 32.9 MG/DL Cholesterol/HDL Ratio 4.92 RATIO Assessment and Plan Assessment and Plan 1. Acute myocardial infarction - the patient does have a history of polycythemia. The risks and benefits of cardiac catheterization were discussed with the patient, particularly in light of his polycythemia, which does make both bleeding and thrombotic complications higher. He declines intervention. He does wish to be managed medically. 09/23- stable without CP or SHOB, cath discussed for next week -declined -he will reconsider when polycythemia is under better control 2. Polycythemia - Per Myers, consult greatly appreciated 3. Cardiomyopathy - EF 25%, caution with diuretics given the polycythemia 4. other- ok for transfer out, Prisca Posadas MD Sep 23, 2016 08:44
[2016-09-23] MEDS: LISINOPRIL 5 MG TAB PO SCH (09:46)
[2016-09-23] MEDS: FUROSEMIDE 20 MG TAB PO SCH ×2 (09:46→17:24)
[2016-09-23] MEDS: PANTOPRAZOLE SOD 40 MG DELAYED RELEASE TAB PO SCH (09:47)
[2016-09-23] MEDS: CARVEDILOL 3.125 MG TAB PO SCH ×2 (09:47→20:40)
[2016-09-23] MEDS: OXYBUTYNIN CHLORIDE 5 MG TAB PO SCH ×2 (09:48→20:42)
[2016-09-23] MEDS: ASPIRIN 325 MG TAB PO SCH (09:48)
[2016-09-23] MEDS: PRASUGREL 10 MG TAB PO SCH (09:49)
[2016-09-23] MEDS: SODIUM CHLORIDE 0.9% FLUSH 10 ML FLUSH IV FLUSH SCH ×2 (09:50→20:39)
[2016-09-23] MEDS: POTASSIUM CHLORIDE 10 MEQ CONTROLLED RELEASE TAB PO SCH ×2 (09:52→20:42)
[2016-09-23] MEDS ORDERED: SODIUM CHLOR 0.9% 250 ML INJ 250 ML IV ONE (10:00)
--- NOTE | 2016-09-23 10:48 | HHI.PR ---
Subjective Remarks breathing better. Objective Vitals heart reg lung improved air entry abd s/nt ext less edema Vital Signs Date Time Temp Pulse Resp B/P Pulse Ox O2 Delivery O2 Flow Rate FiO2 09/23/16 06:52 93 Nasal Cannula 3.00 09/23/16 06:00 90 09/23/16 04:00 98.4 93 25 114/72 93 09/23/16 04:00 93 09/23/16 02:00 93 09/23/16 00:00 96 09/23/16 00:00 98.6 97 21 112/72 94 09/22/16 22:00 101 09/22/16 20:00 115 09/22/16 20:00 98.7 115 33 112/75 94 09/22/16 19:24 93 Nasal Cannula 3.00 09/22/16 18:40 108 09/22/16 18:21 105 09/22/16 18:00 104 09/22/16 17:40 101 33 113/79 91 09/22/16 17:40 101 09/22/16 17:20 103 09/22/16 17:20 103 25 117/81 93 09/22/16 17:00 96 18 113/72 90 09/22/16 17:00 96 09/22/16 16:40 108 24 124/82 93 09/22/16 16:40 108 09/22/16 16:40 108 24 124/82 93 09/22/16 16:40 108 09/22/16 16:20 101 09/22/16 16:20 101 17 117/80 90 09/22/16 16:20 101 17 117/80 90 09/22/16 16:20 101 09/22/16 16:00 110 09/22/16 16:00 110 31 122/83 92 09/22/16 16:00 110 31 122/83 92 09/22/16 16:00 110 09/22/16 15:50 98.6 09/22/16 15:44 90 Nasal Cannula 4.00 09/22/16 14:30 95 Nasal Cannula 4.00 09/22/16 12:25 122 32 155/93 94 BiPAP 60 09/22/16 11:50 95 60 09/22/16 11:50 96 BiPAP 60 09/22/16 11:31 140 39 95 Non-Rebreather 09/22/16 11:31 96 Non-Rebreather 15 100 09/22/16 11:27 139 29 180/103 93 09/22/16 11:25 99.2 146 29 185/103 93 Non-Rebreather 09/22/16 09/22/16 09/23/16 15:00 23:00 07:00 Intake Total 240 ml 730 ml Output Total 300 ml 650 ml 750.00 ml Balance -300 ml -410 ml -20.00 ml Intake Oral 240 ml 480 ml IV Total 250 ml Output Urine Total 300 ml 650 ml 450 ml Blood Draw 300.00 ml # Voids 1 Result Diagram: 09/23/16 0417 09/23/16 0417 Imaging Last Impressions Chest X-Ray 09/22/16 1121 Signed Impressions: Service Date/Time: Thursday, September 22, 2016 11:48 - CONCLUSION: Moderate congestive failure. Agustín Abrams MD FACR A/P Problem List: (1) AMI (acute myocardial infarction) Status: Acute Plan: Pt is 76 yo with polycythemia believed secondary to testosterone Presents with respiratory distress and pulmonary edema. Found to have AMI and new systolic chf 25% with exacerbation/pulmonary edema. hematology and cardiology following tranfser out of ICU off bipap cont bb/edgardo/asa/effient/anticoagulation phlebotomies per hematology increase activity. wean oxygen as tolerated. (2) Systolic CHF Status: Acute Plan: see above (3) Pulmonary edema Status: Acute Plan: - see above (4) Polycythemia, secondary Status: Chronic Plan: -see above Problem Qualifiers (1) Pulmonary edema: Qualified Code: J81.0 - Acute pulmonary edema Jaron Rodas MD Sep 23, 2016 10:48
--- NOTE | 2016-09-23 13:07 | PD.ONC.PN ---
Subjective Subjective Remarks Afebrile overnight. "I feel great" Has transfer to floor but they cannot phlebotomize outside of the ICU. Objective Data Date Time Temp Pulse Resp B/P Pulse Ox O2 Delivery O2 Flow Rate FiO2 09/23/16 06:52 93 Nasal Cannula 3.00 09/23/16 06:00 90 09/23/16 04:00 98.4 93 25 114/72 93 09/23/16 04:00 93 09/23/16 02:00 93 09/23/16 00:00 96 09/23/16 00:00 98.6 97 21 112/72 94 09/22/16 22:00 101 09/22/16 20:00 115 09/22/16 20:00 98.7 115 33 112/75 94 09/22/16 19:24 93 Nasal Cannula 3.00 09/22/16 18:40 108 09/22/16 18:21 105 09/22/16 18:00 104 09/22/16 17:40 101 33 113/79 91 09/22/16 17:40 101 09/22/16 17:20 103 09/22/16 17:20 103 25 117/81 93 09/22/16 17:00 96 18 113/72 90 09/22/16 17:00 96 09/22/16 16:40 108 24 124/82 93 09/22/16 16:40 108 09/22/16 16:40 108 24 124/82 93 09/22/16 16:40 108 09/22/16 16:20 101 09/22/16 16:20 101 17 117/80 90 09/22/16 16:20 101 17 117/80 90 09/22/16 16:20 101 09/22/16 16:00 110 09/22/16 16:00 110 31 122/83 92 09/22/16 16:00 110 31 122/83 92 09/22/16 16:00 110 09/22/16 15:50 98.6 09/22/16 15:44 90 Nasal Cannula 4.00 09/22/16 14:30 95 Nasal Cannula 4.00 Result Diagram: 09/23/16 0417 09/23/16 0417 Laboratory Results Laboratory Tests Test 09/22/16 09/22/16 09/22/16 09/23/16 14:37 15:30 19:26 04:17 Total Creatine Kinase 766 U/L 1145 U/L Creatine Kinase MB 76.9 NG/ML 133.1 NG/ML Creatine Kinase MB % 10.0 % 11.6 % Troponin I 13.70 NG/ML 27.60 NG/ML Nasal Screen MRSA (PCR) MRSA NOT DETECTED White Blood Count 13.5 TH/MM3 Red Blood Count 6.11 MIL/MM3 Hemoglobin 18.3 GM/DL Hematocrit 54.9 % Mean Corpuscular Volume 89.8 FL Mean Corpuscular Hemoglobin 30.0 PG Mean Corpuscular Hemoglobin 33.4 % Concent Red Cell Distribution Width 14.4 % Platelet Count 179 TH/MM3 Mean Platelet Volume 9.8 FL Neutrophils (%) (Auto) 78.3 % Lymphocytes (%) (Auto) 10.5 % Monocytes (%) (Auto) 10.8 % Eosinophils (%) (Auto) 0.2 % Basophils (%) (Auto) 0.2 % Neutrophils # (Auto) 10.6 TH/MM3 Lymphocytes # (Auto) 1.4 TH/MM3 Monocytes # (Auto) 1.5 TH/MM3 Eosinophils # (Auto) 0.0 TH/MM3 Basophils # (Auto) 0.0 TH/MM3 CBC Comment DIFF FINAL Differential Comment Sodium Level 141 MEQ/L Potassium Level 3.8 MEQ/L Chloride Level 102 MEQ/L Carbon Dioxide Level 29.9 MEQ/L Anion Gap 9 MEQ/L Blood Urea Nitrogen 16 MG/DL Creatinine 1.13 MG/DL Estimat Glomerular Filtration 63 ML/MIN Rate Random Glucose 99 MG/DL Lactic Acid Level 1.8 mmol/L Calcium Level 9.2 MG/DL Magnesium Level 1.8 MG/DL Triglycerides Level 89 MG/DL Cholesterol Level 162 MG/DL LDL Cholesterol 111 MG/DL HDL Cholesterol 32.9 MG/DL Cholesterol/HDL Ratio 4.92 RATIO Culture Results Microbiology Date/Time Procedure Status Source Growth 09/22/16 11:50 Aerobic Blood Culture - Preliminary Resulted Blood Peripheral NO GROWTH IN 1 DAY 09/22/16 11:50 Anaerobic Blood Culture - Preliminary Resulted Blood Peripheral NO GROWTH IN 1 DAY 09/22/16 11:55 Aerobic Blood Culture - Preliminary Resulted Blood Peripheral NO GROWTH IN 1 DAY 09/22/16 11:55 Anaerobic Blood Culture - Preliminary Resulted Blood Peripheral NO GROWTH IN 1 DAY Imaging Studies Last 24 hours Impressions Chest X-Ray 09/23/16 0600 Signed Impressions: Service Date/Time: Friday, September 23, 2016 04:13 - CONCLUSION: Improved pulmonary edema pattern since September 22. Elías Lopez MD Administered Medications Medications (Trade) Dose Ordered Sig/Melissa Route PRN Reason Start Time Stop Time Status Last Admin Dose Admin Sodium Chloride (NS Flush) 2 ml BID IV FLUSH 09/22/16 21:00 09/23/16 09:50 Aspirin (Aspirin) 325 mg DAILY PO 09/22/16 13:00 09/23/16 09:48 Pantoprazole Sodium (Protonix) 40 mg DAILY PO 09/23/16 09:00 09/23/16 09:47 Enoxaparin Sodium (Lovenox Inj) 120 mg Q12H SQ 09/22/16 14:00 09/23/16 02:07 Oxybutynin Chloride (Ditropan) 5 mg BID PO 09/22/16 21:00 09/23/16 09:48 Prasugrel (Effient) 10 mg DAILY PO 09/23/16 09:00 09/23/16 09:49 Atorvastatin Calcium (Lipitor) 40 mg HS PO 09/22/16 21:00 09/22/16 21:30 Carvedilol (Coreg) 3.125 mg Q12HR PO 09/22/16 21:00 09/23/16 09:47 Lisinopril (Prinivil) 2.5 mg DAILY PO 09/23/16 09:00 09/23/16 09:46 Potassium Chloride (KCl) 10 meq Q12HR PO 09/23/16 10:00 09/23/16 09:52 Furosemide (Lasix) 20 mg BID@18 PO 09/23/16 10:00 09/23/16 09:46 Objective Remarks GENERAL: Older, overweight male sitting up in bed watching TV in no distress. SKIN: Warm and dry. HEAD: Normocephalic. EYES: No injection or drainage. NECK: Supple, trachea midline. CARDIOVASCULAR: +S1/S2. RESPIRATORY: Lungs clear anteriorly. GASTROINTESTINAL: Abdomen protuberant, soft. Non-tender. EXTREMITIES: No edema. SCD's to BLE. NEUROLOGICAL: A&Ox3. Normal speech. Moving all extremities. Assessment/Plan Assessment 76 y/o male admitted with SOB and hematology was consulted for polycythemia. Plan 1. Hgb 18.3 today, after 500ml phlebotomy yesterday. 2. Order written to phlebotomize patient today as well. Tolerated both phlebotomies. 3. It is likely that this is a reactive process. However, we will await the KINGSLEY- 2 result for confirmation. 4. OK to transfer out of the ICU pending he does not need a phlebotomy in the am. Attending Statement The exam, history, and the medical decision-making described in the above note were completed with the assistance of the mid-level provider. I reviewed and agree with the findings presented. I attest that I had a [id number] encounter with the patient on the same day, and personally performed and documented my assessment and findings in the medical record. doing much better and tachycardia is gone. will remove another unit. would like hematocrit below 50 . Sandee Robin Sep 23, 2016 13:07 Jaron Serna MD Sep 23, 2016 16:28
--- NOTE | 2016-09-23 13:29 | EKG ---
Date Performed: 09/22/2016 Time Performed: 17:19:28 PTAGE: 76 years EKG: Sinus tachycardia. Anteroseptal infarct - age undetermined Inferior infarct - age undetermi gertrudis Lateral ST-T changes may be due to myocardial ischemia Abnormal ECG PREVIOUS TRACING : 09/22/2016 11.31 Compared to prior tracing no significant change DOCTOR: Han Kearns Interpretating Date/Time 09/23/2016 13:27:13
--- NOTE | 2016-09-23 13:37 | EKG ---
Date Performed: 09/22/2016 Time Performed: 11:27:57 PTAGE: 76 years EKG: SINUS TACHYCARDIA WITH FREQUENT VENTRICULAR PREMATURE COMPLEXES POSSIBLE INFERIOR MYOCARDIA L INFARCTION ANTEROSEPTAL MYOCARDIAL INFARCTION ACUTE [place] INTERPRETATION BASED ON A DEFAULT AGE OF 40 YEARS PREVIOUS TRACING : 06/16/2013 08.48 COMPARED WITH PREVIOUS EKG SINUS TACHYCARDIA WITH TH E ACUTE ANTERIOR MYOCARDIAL INFRACTION IS NEW DOCTOR: Han Kearns Interpretating Date/Time 09/23/2016 13:34:55
--- NOTE | 2016-09-23 13:37 | EKG ---
Date Performed: 09/22/2016 Time Performed: 11:31:17 PTAGE: 76 years EKG: SINUS TACHYCARDIA ANTERIOR MYOCARDIAL INFARCTION POSSIBLE INFERIOR MYOCARDIAL INFARCTION *ACUTE IN INTERPRETATION BASED ON A DEFAULT AGE OF 40 YEARS PREVIOUS TRACING : 09/22/2016 11.27 Compared to prior tracing no significant change DOCTOR: Han Kearns Interpretating Date/Time 09/23/2016 13:34:00
[2016-09-23] MEDS: HYDROCORTISONE ACETATE 25 MG SUPP RECTAL SCH ×2 (16:24→20:41)
[2016-09-23] MEDS: ATORVASTATIN 40 MG TAB PO SCH (20:41)
[2016-09-24] VITALS (29 sets, daily range): BP systolic 94–129; BP diastolic 51–84; PULSE 72–108; RESP 18–24; TEMP 98–98.6; O2SAT 92–96
[2016-09-24] MEDS: ENOXAPARIN SODIUM 120 MG/0.8 ML SYRINGE SQ SCH ×2 (03:25→14:06)
[2016-09-24 05:29] LABS: HEMATOCRIT 50.3 % (39.0-51.0); MEAN CELL VOLUME 90.4 FL (80.0-100.0); MEAN CORPUSCULAR HEMOGLOBIN 29.8 PG (27.0-34.0); MEAN CORPUSCULAR HGB CONC 32.9 % (32.0-36.0); PLATELET COUNT 159 TH/MM3 (150-450); RED BLOOD COUNT 5.56 MIL/MM3 (4.50-5.90); RED CELL DISTRIBUTION WIDTH 13.9 % (11.6-17.2); REVIEW FLAG FINAL; WHITE BLOOD COUNT 10.2 TH/MM3 (4.0-11.0)
[2016-09-24 05:54] LABS: BICARBONATE 30.6 MEQ/L (21.0-32.0); POTASSIUM 3.7 MEQ/L (3.5-5.1)
[2016-09-24] MEDS: SODIUM CHLORIDE 0.9% FLUSH 10 ML FLUSH IV FLUSH SCH ×2 (08:57→21:46)
[2016-09-24] MEDS: HYDROCORTISONE ACETATE 25 MG SUPP RECTAL SCH ×2 (08:57→21:00)
[2016-09-24] MEDS: LISINOPRIL 5 MG TAB PO SCH (08:57)
[2016-09-24] MEDS: OXYBUTYNIN CHLORIDE 5 MG TAB PO SCH ×2 (08:58→21:45)
[2016-09-24] MEDS: POTASSIUM CHLORIDE 10 MEQ CONTROLLED RELEASE TAB PO SCH ×2 (08:58→21:45)
[2016-09-24] MEDS: ASPIRIN 325 MG TAB PO SCH (08:58)
[2016-09-24] MEDS: FUROSEMIDE 20 MG TAB PO SCH ×2 (08:58→17:43)
[2016-09-24] MEDS: PRASUGREL 10 MG TAB PO SCH (08:58)
[2016-09-24] MEDS: CARVEDILOL 3.125 MG TAB PO SCH ×2 (08:58→21:46)
[2016-09-24] MEDS: PANTOPRAZOLE SOD 40 MG DELAYED RELEASE TAB PO SCH (08:58)
--- NOTE | 2016-09-24 10:22 | PD.ONC.PN ---
Subjective Subjective Remarks Afebrile overnight. Pt resting comfortably in bed. "I feel better after the phlebotomy" Objective Data Date Time Temp Pulse Resp B/P Pulse Ox O2 Delivery O2 Flow Rate FiO2 09/24/16 10:00 96 09/24/16 09:00 106 09/24/16 08:17 93 Nasal Cannula 2.00 09/24/16 08:00 108 09/24/16 07:00 87 09/24/16 07:00 98.0 98 20 116/73 95 09/24/16 06:08 98.0 78 22 94/51 92 09/24/16 06:00 88 09/24/16 05:00 84 09/24/16 04:00 82 09/24/16 03:22 94 24 110/75 94 09/24/16 03:00 82 09/24/16 02:00 80 09/24/16 01:00 82 09/24/16 00:00 85 09/23/16 23:00 90 09/23/16 22:58 98.2 93 22 135/75 94 09/23/16 22:00 97 09/23/16 21:01 100 34 118/74 95 09/23/16 21:01 100 09/23/16 21:00 97 26 87 09/23/16 21:00 97 09/23/16 20:04 92 Nasal Cannula 4.00 09/23/16 20:00 98.1 90 22 120/79 92 09/23/16 20:00 90 09/23/16 19:00 90 09/23/16 19:00 90 10 133/83 95 09/23/16 18:00 95 30 144/95 93 09/23/16 17:00 91 37 93/68 92 09/23/16 16:24 98.5 92 25 99/64 93 09/23/16 15:00 90 22 106/67 91 09/23/16 14:00 85 21 94/59 92 09/23/16 13:45 92 22 91/58 92 09/23/16 13:30 89 15 93/56 92 09/23/16 13:15 93 27 113/68 94 09/23/16 13:00 87 27 116/72 94 09/23/16 12:46 90 27 115/72 94 09/23/16 12:30 88 33 85/57 92 09/23/16 12:15 87 21 111/73 94 09/23/16 12:01 91 34 121/87 93 09/23/16 12:00 97.8 92 24 92 09/23/16 11:45 90 18 103/67 94 09/23/16 11:45 90 15 103/67 92 09/23/16 11:30 93 18 111/74 92 09/23/16 11:20 91 19 111/70 91 09/23/16 11:15 87 18 110/68 93 09/23/16 11:13 88 12 112/69 94 09/23/16 11:00 93 21 95 09/24/16 09/24/16 09/24/16 07:00 15:00 23:00 Intake Total 120 ml Balance 120 ml Result Diagram: 09/24/16 0504 09/24/16 0504 Laboratory Results Laboratory Tests Test 09/24/16 05:04 White Blood Count 10.2 TH/MM3 Red Blood Count 5.56 MIL/MM3 Hemoglobin 16.6 GM/DL Hematocrit 50.3 % Mean Corpuscular Volume 90.4 FL Mean Corpuscular Hemoglobin 29.8 PG Mean Corpuscular Hemoglobin 32.9 % Concent Red Cell Distribution Width 13.9 % Platelet Count 159 TH/MM3 Mean Platelet Volume 9.6 FL Sodium Level 140 MEQ/L Potassium Level 3.7 MEQ/L Chloride Level 102 MEQ/L Carbon Dioxide Level 30.6 MEQ/L Anion Gap 7 MEQ/L Blood Urea Nitrogen 17 MG/DL Creatinine 1.02 MG/DL Estimat Glomerular Filtration 71 ML/MIN Rate Random Glucose 86 MG/DL Calcium Level 9.2 MG/DL Culture Results Microbiology Date/Time Procedure Status Source Growth 09/22/16 11:50 Aerobic Blood Culture - Preliminary Resulted Blood Peripheral NO GROWTH IN 1 DAY 09/22/16 11:50 Anaerobic Blood Culture - Preliminary Resulted Gram Positive Cocci 09/22/16 11:55 Aerobic Blood Culture - Preliminary Resulted Blood Peripheral NO GROWTH IN 1 DAY 09/22/16 11:55 Anaerobic Blood Culture - Preliminary Resulted Blood Peripheral NO GROWTH IN 1 DAY Administered Medications Medications (Trade) Dose Ordered Sig/Melissa Route PRN Reason Start Time Stop Time Status Last Admin Dose Admin Sodium Chloride (NS Flush) 2 ml BID IV FLUSH 09/22/16 21:00 09/24/16 08:57 Aspirin (Aspirin) 325 mg DAILY PO 09/22/16 13:00 09/24/16 08:58 Pantoprazole Sodium (Protonix) 40 mg DAILY PO 09/23/16 09:00 09/24/16 08:58 Enoxaparin Sodium (Lovenox Inj) 120 mg Q12H SQ 09/22/16 14:00 09/24/16 03:25 Oxybutynin Chloride (Ditropan) 5 mg BID PO 09/22/16 21:00 09/24/16 08:58 Prasugrel (Effient) 10 mg DAILY PO 09/23/16 09:00 09/24/16 08:58 Atorvastatin Calcium (Lipitor) 40 mg HS PO 09/22/16 21:00 09/23/16 20:41 Carvedilol (Coreg) 3.125 mg Q12HR PO 09/22/16 21:00 09/24/16 08:58 Lisinopril (Prinivil) 2.5 mg DAILY PO 09/23/16 09:00 09/24/16 08:57 Potassium Chloride (KCl) 10 meq Q12HR PO 09/23/16 10:00 09/24/16 08:58 Furosemide (Lasix) 20 mg BID@,18 PO 09/23/16 10:00 09/24/16 08:58 Hydrocortisone Acetate (Hemorrhoidal Hc Supp) 25 mg BID RECTAL 09/23/16 14:30 09/24/16 08:57 Objective Remarks GENERAL: Older, overweight male sitting up in bed watching TV in no distress. SKIN: Warm and dry. HEAD: Normocephalic. EYES: No injection or drainage. NECK: Supple, trachea midline. CARDIOVASCULAR: +S1/S2. RESPIRATORY: Lungs clear anteriorly. GASTROINTESTINAL: Abdomen protuberant, soft. Non-tender. EXTREMITIES: No edema. NEUROLOGICAL: A&Ox3. Normal speech. Moving all extremities. Assessment/Plan Assessment 76 y/o male admitted with SOB and hematology was consulted for polycythemia. Plan 1. Blood counts much improved after 2 phlebotomies. 2. Will check CBC in a.m. 3. It is likely that the elevated hemoglobin is due to the testosterone stimulating the bone marrow, however we will await KINGSLEY-2 results. Attending Statement The exam, history, and the medical decision-making described in the above note were completed with the assistance of the mid-level provider. I reviewed and agree with the findings presented. I attest that I had a [id number] encounter with the patient on the same day, and personally performed and documented my assessment and findings in the medical record. continues to do well without sob or chest pain. H/H now upper limit of normal. Although one could observe at this point will remove an additional unit as he received a testosterone injection on September 14 and the effects will last one month pushing up his hemoglobin. This will probably be the last unit removed and will check cbc plat in am. discussed with Dr. Quinones. Sandee Robin Sep 24, 2016 10:22 Jaron Serna MD Sep 24, 2016 13:21
--- NOTE | 2016-09-24 12:15 | HHI.PR ---
Subjective Remarks "explosive diarrhea" . breathing much better. no cp. Objective Vitals heart reg lung good air entry abd s/nt ext edema improved Vital Signs Date Time Temp Pulse Resp B/P Pulse Ox O2 Delivery O2 Flow Rate FiO2 09/24/16 12:00 107 09/24/16 11:00 92 09/24/16 11:00 98.6 88 20 95/64 95 09/24/16 10:00 96 09/24/16 09:00 106 09/24/16 08:17 93 Nasal Cannula 2.00 09/24/16 08:00 108 09/24/16 07:00 87 09/24/16 07:00 98.0 98 20 116/73 95 09/24/16 06:08 98.0 78 22 94/51 92 09/24/16 06:00 88 09/24/16 05:00 84 09/24/16 04:00 82 09/24/16 03:22 94 24 110/75 94 09/24/16 03:00 82 09/24/16 02:00 80 09/24/16 01:00 82 09/24/16 00:00 85 09/23/16 23:00 90 09/23/16 22:58 98.2 93 22 135/75 94 09/23/16 22:00 97 09/23/16 21:01 100 34 118/74 95 09/23/16 21:01 100 09/23/16 21:00 97 26 87 09/23/16 21:00 97 09/23/16 20:04 92 Nasal Cannula 4.00 09/23/16 20:00 98.1 90 22 120/79 92 09/23/16 20:00 90 09/23/16 19:00 90 09/23/16 19:00 90 10 133/83 95 09/23/16 18:00 95 30 144/95 93 09/23/16 17:00 91 37 93/68 92 09/23/16 16:24 98.5 92 25 99/64 93 09/23/16 15:00 90 22 106/67 91 09/23/16 14:00 85 21 94/59 92 09/23/16 13:45 92 22 91/58 92 09/23/16 13:30 89 15 93/56 92 09/23/16 13:15 93 27 113/68 94 09/23/16 13:00 87 27 116/72 94 09/23/16 12:46 90 27 115/72 94 09/23/16 12:30 88 33 85/57 92 09/23/16 12:15 87 21 111/73 94 09/23/16 09/23/16 09/24/16 15:00 23:00 07:00 Intake Total 650 ml 240 ml 120 ml Output Total 1100.00 ml 350 ml Balance -450.00 ml -110 ml 120 ml Intake Oral 400 ml 240 ml 120 ml IV Total 250 ml 0 ml Output Urine Total 600 ml 350 ml Blood Draw 500.00 ml # Voids 1 # Bowel Movements 1 0 Result Diagram: 09/24/16 0504 09/24/16 0504 Imaging Last Impressions Chest X-Ray 09/22/16 1121 Signed Impressions: Service Date/Time: Thursday, September 22, 2016 11:48 - CONCLUSION: Moderate congestive failure. Agustín Abrams MD FACR A/P Problem List: (1) AMI (acute myocardial infarction) Status: Acute Plan: Pt is 76 yo with polycythemia believed secondary to testosterone Presents with respiratory distress and pulmonary edema. Found to have AMI and new systolic chf 25% with exacerbation/pulmonary edema. ...possible connection to severe polycythemia. Diarrhea...r/o c.diff . pt received abx in ED hematology and cardiology following transferred to cic/tele off bipap. pt down to 2.5LNC cont bb/edgardo/asa/effient/anticoagulation and decide on ischemic w/up with cardiology. phlebotomies per hematology. hgb improved and down to 16 send stool for cdiff pcr. if neg then consider one of new medications. increase activity. wean oxygen as tolerated. (2) Systolic CHF Status: Acute Plan: see above (3) Pulmonary edema Status: Acute Plan: - see above (4) Polycythemia, secondary Status: Chronic Plan: -see above (5) Diarrhea Status: Acute Plan: see above Problem Qualifiers (1) Pulmonary edema: Qualified Code: J81.0 - Acute pulmonary edema Jaron Rodas MD Sep 24, 2016 12:15
--- NOTE | 2016-09-24 13:32 | PD.CARD.PN ---
Subjective Subjective Remarks Pt without complaints Objective Medications Current Medications Medications (Trade) Dose Ordered Sig/Melissa Route Start Time Stop Time Status Last Admin (NS Flush) 2 ml BID IV FLUSH 09/22/16 21:00 09/24/16 08:57 (NS Flush) 2 ml UNSCH PRN IV FLUSH 09/22/16 13:00 (Aspirin) 325 mg DAILY PO 09/22/16 13:00 09/24/16 08:58 ([place] 7.5-325 Mg) 1 tab Q4H PRN PO 09/22/16 13:00 (Protonix) 40 mg DAILY PO 09/23/16 09:00 09/24/16 08:58 (Xanax) 0.25 mg TID PRN PO 09/22/16 13:00 (Lovenox Inj) 120 mg Q12H SQ 09/22/16 14:00 09/24/16 03:25 (Ditropan) 5 mg BID PO 09/22/16 21:00 09/24/16 08:58 (Tylenol) 650 mg Q4H PRN PO 09/22/16 13:45 (Zofran Inj) 4 mg Q6H PRN IV 09/22/16 13:45 (Effient) 10 mg DAILY PO 09/23/16 09:00 09/24/16 08:58 (Lipitor) 40 mg HS PO 09/22/16 21:00 09/23/16 20:41 (Coreg) 3.125 mg Q12HR PO 09/22/16 21:00 09/24/16 08:58 (Prinivil) 2.5 mg DAILY PO 09/23/16 09:00 09/24/16 08:57 (Pill Splitter) 1 ea UNSCH PRN OTHER 09/22/16 19:00 (KCl) 10 meq Q12HR PO 09/23/16 10:00 09/24/16 08:58 (Lasix) 20 mg BID@18 PO 09/23/16 10:00 09/24/16 08:58 Hydrocortisone Acetate 25 mg 25 mg BID RECTAL 09/23/16 14:30 09/24/16 08:57 (NS 250 ml Inj) 250 ml @ 250 mls/hr BOLUS ONCE IV 09/24/16 13:30 09/24/16 14:29 UNV Vital Signs / I&O Vital Signs Date Time Temp Pulse Resp B/P Pulse Ox O2 Delivery O2 Flow Rate FiO2 09/24/16 13:00 84 09/24/16 12:00 107 09/24/16 11:00 92 09/24/16 11:00 98.6 88 20 95/64 95 09/24/16 10:00 96 09/24/16 09:00 106 09/24/16 08:17 93 Nasal Cannula 2.00 09/24/16 08:00 108 09/24/16 07:00 87 09/24/16 07:00 98.0 98 20 116/73 95 09/24/16 06:08 98.0 78 22 94/51 92 09/24/16 06:00 88 09/24/16 05:00 84 09/24/16 04:00 82 09/24/16 03:22 94 24 110/75 94 09/24/16 03:00 82 09/24/16 02:00 80 09/24/16 01:00 82 09/24/16 00:00 85 09/23/16 23:00 90 09/23/16 22:58 98.2 93 22 135/75 94 09/23/16 22:00 97 09/23/16 21:01 100 34 118/74 95 09/23/16 21:01 100 09/23/16 21:00 97 26 87 09/23/16 21:00 97 09/23/16 20:04 92 Nasal Cannula 4.00 09/23/16 20:00 98.1 90 22 120/79 92 09/23/16 20:00 90 09/23/16 19:00 90 09/23/16 19:00 90 10 133/83 95 09/23/16 18:00 95 30 144/95 93 09/23/16 17:00 91 37 93/68 92 09/23/16 16:24 98.5 92 25 99/64 93 09/23/16 15:00 90 22 106/67 91 09/23/16 14:00 85 21 94/59 92 09/23/16 13:45 92 22 91/58 92 I/O 09/23/16 09/23/16 09/23/16 09/24/16 09/24/16 09/24/16 07:00 15:00 23:00 07:00 15:00 23:00 Intake Total 730 ml 650 ml 240 ml 120 ml Output Total 750.00 ml 1100.00 ml 350 ml Balance -20.00 ml -450.00 ml -110 ml 120 ml Intake Oral 480 ml 400 ml 240 ml 120 ml IV Total 250 ml 250 ml 0 ml Output Urine Total 450 ml 600 ml 350 ml Blood Draw 300.00 ml 500.00 ml # Voids 1 # Bowel Movements 1 0 Physical Exam GENERAL: Well developed, well nourished. No acute distress. HEENT: Jugular venous pressure is normal. CHEST: Lungs clear to auscultation bilaterally. Unlabored respiratory effort. CARDIAC: Regular rate and rhythm without S3, S4, or murmur. ABDOMEN: Soft, nontender, no hepatosplenomegaly. Bowel sounds present. EXTREMITIES: No clubbing, cyanosis, or edema. Laboratory Laboratory Tests Test 09/24/16 05:04 White Blood Count 10.2 TH/MM3 Red Blood Count 5.56 MIL/MM3 Hemoglobin 16.6 GM/DL Hematocrit 50.3 % Mean Corpuscular Volume 90.4 FL Mean Corpuscular Hemoglobin 29.8 PG Mean Corpuscular Hemoglobin 32.9 % Concent Red Cell Distribution Width 13.9 % Platelet Count 159 TH/MM3 Mean Platelet Volume 9.6 FL Sodium Level 140 MEQ/L Potassium Level 3.7 MEQ/L Chloride Level 102 MEQ/L Carbon Dioxide Level 30.6 MEQ/L Anion Gap 7 MEQ/L Blood Urea Nitrogen 17 MG/DL Creatinine 1.02 MG/DL Estimat Glomerular Filtration 71 ML/MIN Rate Random Glucose 86 MG/DL Calcium Level 9.2 MG/DL Assessment and Plan Assessment and Plan 1. Acute myocardial infarction - asymptomatic with medical management 2. Polycythemia - Per Myers, consult greatly appreciated 3. Cardiomyopathy - EF 25%, on BB and edgardo 4. other- ok for brandon, Prisca Posadas MD Sep 24, 2016 13:32
[2016-09-24] MEDS ORDERED: SODIUM CHLOR 0.9% 250 ML INJ 250 ML IV ONE (14:00)
[2016-09-24 14:36] LABS: C. DIFF EPI 027 PRESUMPTIVE NEGATIVE (NEGATIVE); C. DIFF TOXIN PCR NEGATIVE (NEGATIVE)
[2016-09-24] MEDS: ATORVASTATIN 40 MG TAB PO SCH (21:45)
[2016-09-25] VITALS (29 sets, daily range): BP systolic 89–116; BP diastolic 50–75; PULSE 72–98; RESP 18–20; TEMP 97.6–98.6; O2SAT 92–95
[2016-09-25] MEDS: ENOXAPARIN SODIUM 120 MG/0.8 ML SYRINGE SQ SCH ×2 (00:53→14:58)
[2016-09-25] MEDS: ACETAMINOPHEN/HYDROcodone 325 MG/7.5 MG TAB PO PRN (00:58)
[2016-09-25 06:16] LABS: MEAN CELL VOLUME 90.8 FL (80.0-100.0); MEAN CORPUSCULAR HEMOGLOBIN 29.7 PG (27.0-34.0); MEAN CORPUSCULAR HGB CONC 32.7 % (32.0-36.0); PLATELET COUNT 162 TH/MM3 (150-450); RED BLOOD COUNT 5.07 MIL/MM3 (4.50-5.90); RED CELL DISTRIBUTION WIDTH 13.9 % (11.6-17.2); REVIEW FLAG FINAL; WHITE BLOOD COUNT 8.4 TH/MM3 (4.0-11.0)
[2016-09-25 06:21] LABS: BICARBONATE 31.1 MEQ/L (21.0-32.0); POTASSIUM 3.8 MEQ/L (3.5-5.1)
[2016-09-25] MEDS: HYDROCORTISONE ACETATE 25 MG SUPP RECTAL SCH ×2 (09:00→21:00)
[2016-09-25] MEDS: PANTOPRAZOLE SOD 40 MG DELAYED RELEASE TAB PO SCH (09:17)
[2016-09-25] MEDS: PRASUGREL 10 MG TAB PO SCH (09:17)
[2016-09-25] MEDS: CARVEDILOL 3.125 MG TAB PO SCH ×3 (09:17→21:00)
[2016-09-25] MEDS: POTASSIUM CHLORIDE 10 MEQ CONTROLLED RELEASE TAB PO SCH (09:18)
[2016-09-25] MEDS: OXYBUTYNIN CHLORIDE 5 MG TAB PO SCH ×2 (09:18→19:56)
[2016-09-25] MEDS: ASPIRIN 325 MG TAB PO SCH (09:18)
[2016-09-25] MEDS: LISINOPRIL 5 MG TAB PO SCH (09:18)
[2016-09-25] MEDS: FUROSEMIDE 20 MG TAB PO SCH (09:18)
[2016-09-25] MEDS: SODIUM CHLORIDE 0.9% FLUSH 10 ML FLUSH IV FLUSH SCH ×2 (09:19→20:01)
--- NOTE | 2016-09-25 09:35 | PD.CARD.PN ---
Subjective Subjective Remarks Pt without CV complaints Objective Medications Current Medications Medications (Trade) Dose Ordered Sig/Melissa Route Start Time Stop Time Status Last Admin (NS Flush) 2 ml BID IV FLUSH 09/22/16 21:00 09/25/16 09:19 (NS Flush) 2 ml UNSCH PRN IV FLUSH 09/22/16 13:00 (Aspirin) 325 mg DAILY PO 09/22/16 13:00 09/25/16 09:18 ([place] 7.5-325 Mg) 1 tab Q4H PRN PO 09/22/16 13:00 09/25/16 00:58 (Protonix) 40 mg DAILY PO 09/23/16 09:00 09/25/16 09:17 (Xanax) 0.25 mg TID PRN PO 09/22/16 13:00 (Lovenox Inj) 120 mg Q12H SQ 09/22/16 14:00 09/25/16 00:53 (Ditropan) 5 mg BID PO 09/22/16 21:00 09/25/16 09:18 (Tylenol) 650 mg Q4H PRN PO 09/22/16 13:45 (Zofran Inj) 4 mg Q6H PRN IV 09/22/16 13:45 (Effient) 10 mg DAILY PO 09/23/16 09:00 09/25/16 09:17 (Lipitor) 40 mg HS PO 09/22/16 21:00 09/24/16 21:45 (Coreg) 3.125 mg Q12HR PO 09/22/16 21:00 09/25/16 09:17 (Prinivil) 2.5 mg DAILY PO 09/23/16 09:00 09/25/16 09:18 (Pill Splitter) 1 ea UNSCH PRN OTHER 09/22/16 19:00 (KCl) 10 meq Q12HR PO 09/23/16 10:00 09/25/16 09:18 (Lasix) 20 mg BID@,18 PO 09/23/16 10:00 09/25/16 09:18 (Hemorrhoidal Hc Supp) 25 mg BID RECTAL 09/23/16 14:30 09/24/16 08:57 Vital Signs / I&O Vital Signs Date Time Temp Pulse Resp B/P Pulse Ox O2 Delivery O2 Flow Rate FiO2 09/25/16 07:01 83 09/25/16 06:00 81 09/25/16 05:00 80 09/25/16 04:00 97.6 98 18 89/50 93 09/25/16 04:00 89 09/25/16 03:00 73 09/25/16 02:00 90 09/25/16 01:00 72 09/25/16 00:00 87 09/25/16 00:00 98.0 89 18 90/63 92 09/24/16 23:00 84 09/24/16 22:00 88 09/24/16 21:00 84 09/24/16 20:00 94 09/24/16 20:00 98.1 89 18 108/62 93 09/24/16 19:58 96 21 09/24/16 19:00 90 09/24/16 18:00 89 09/24/16 17:00 99 09/24/16 16:00 80 09/24/16 15:00 98.1 86 18 129/84 94 09/24/16 15:00 90 09/24/16 14:00 88 09/24/16 13:50 98.6 72 20 127/75 09/24/16 13:00 84 09/24/16 12:00 107 09/24/16 11:00 92 09/24/16 11:00 98.6 88 20 95/64 95 09/24/16 10:00 96 I/O 09/24/16 09/24/16 09/24/16 09/25/16 09/25/16 09/25/16 07:00 15:00 23:00 07:00 15:00 23:00 Intake Total 120 ml 1090 ml 1440 ml Output Total 500.00 ml 625 ml Balance 120 ml 590.00 ml 815 ml Intake Oral 120 ml 840 ml 1440 ml IV Total 0 ml 250 ml Output Urine Total 625 ml Blood Draw 500.00 ml # Voids 1 3 # Bowel Movements 0 4 0 Physical Exam GENERAL: Well developed, well nourished. No acute distress. HEENT: Jugular venous pressure is normal. CHEST: Lungs clear to auscultation bilaterally. Unlabored respiratory effort. CARDIAC: Regular rate and rhythm without S3, S4, or murmur. ABDOMEN: Soft, nontender, no hepatosplenomegaly. Bowel sounds present. EXTREMITIES: No clubbing, cyanosis, or edema. Laboratory Laboratory Tests Test 09/24/16 09/25/16 11:00 05:00 Stool C. difficile Toxin (PCR) NEGATIVE Stl C. difficile Toxin PRESUMPTIVE Epiderm 027 NEGATIVE White Blood Count 8.4 TH/MM3 Red Blood Count 5.07 MIL/MM3 Hemoglobin 15.0 GM/DL Hematocrit 46.0 % Mean Corpuscular Volume 90.8 FL Mean Corpuscular Hemoglobin 29.7 PG Mean Corpuscular Hemoglobin 32.7 % Concent Red Cell Distribution Width 13.9 % Platelet Count 162 TH/MM3 Mean Platelet Volume 9.7 FL Sodium Level 138 MEQ/L Potassium Level 3.8 MEQ/L Chloride Level 102 MEQ/L Carbon Dioxide Level 31.1 MEQ/L Anion Gap 5 MEQ/L Blood Urea Nitrogen 16 MG/DL Creatinine 1.22 MG/DL Estimat Glomerular Filtration 57 ML/MIN Rate Random Glucose 93 MG/DL Calcium Level 8.8 MG/DL Assessment and Plan Assessment and Plan 1. Acute myocardial infarction - asymptomatic with medical management -stable -Life Vest - on statin, aspirin and effient 2. Polycythemia - Per Myers, 3. Cardiomyopathy - EF 25%, on BB and edgardo 4. other- ok for D/C Prisca Quinones MD Sep 25, 2016 09:35
[2016-09-25] MEDS ORDERED: DEFIB EXTERNAL (10:28)
--- NOTE | 2016-09-25 10:35 | HHI.PR ---
Subjective Remarks Pt denies any chest pain or SOB He is very anxious to go home. Pts BP this morning was 89/50 but denies any dizziness, weakness, or headache. Objective Vitals Vital Signs Date Time Temp Pulse Resp B/P Pulse Ox O2 Delivery O2 Flow Rate FiO2 09/25/16 07:01 83 09/25/16 06:00 81 09/25/16 05:00 80 09/25/16 04:00 97.6 98 18 89/50 93 09/25/16 04:00 89 09/25/16 03:00 73 09/25/16 02:00 90 09/25/16 01:00 72 09/25/16 00:00 87 09/25/16 00:00 98.0 89 18 90/63 92 09/24/16 23:00 84 09/24/16 22:00 88 09/24/16 21:00 84 09/24/16 20:00 94 09/24/16 20:00 98.1 89 18 108/62 93 09/24/16 19:58 96 21 09/24/16 19:00 90 09/24/16 18:00 89 09/24/16 17:00 99 09/24/16 16:00 80 09/24/16 15:00 98.1 86 18 129/84 94 09/24/16 15:00 90 09/24/16 14:00 88 09/24/16 13:50 98.6 72 20 127/75 09/24/16 13:00 84 09/24/16 12:00 107 09/24/16 11:00 92 09/24/16 11:00 98.6 88 20 95/64 95 09/24/16 09/24/16 09/25/16 15:00 23:00 07:00 Intake Total 1090 ml 1440 ml Output Total 500.00 ml 625 ml Balance 590.00 ml 815 ml Intake Oral 840 ml 1440 ml IV Total 250 ml Output Urine Total 625 ml Blood Draw 500.00 ml # Voids 3 # Bowel Movements 4 0 Result Diagram: 09/25/16 0500 09/25/16 0500 Other Results Laboratory Tests Test 09/24/16 09/24/16 09/25/16 05:04 11:00 05:00 White Blood Count 10.2 TH/MM3 8.4 TH/MM3 Red Blood Count 5.56 MIL/MM3 5.07 MIL/MM3 Hemoglobin 16.6 GM/DL 15.0 GM/DL Hematocrit 50.3 % 46.0 % Mean Corpuscular Volume 90.4 FL 90.8 FL Mean Corpuscular Hemoglobin 29.8 PG 29.7 PG Mean Corpuscular Hemoglobin 32.9 % 32.7 % Concent Red Cell Distribution Width 13.9 % 13.9 % Platelet Count 159 TH/MM3 162 TH/MM3 Mean Platelet Volume 9.6 FL 9.7 FL Sodium Level 140 MEQ/L 138 MEQ/L Potassium Level 3.7 MEQ/L 3.8 MEQ/L Chloride Level 102 MEQ/L 102 MEQ/L Carbon Dioxide Level 30.6 MEQ/L 31.1 MEQ/L Anion Gap 7 MEQ/L 5 MEQ/L Blood Urea Nitrogen 17 MG/DL 16 MG/DL Creatinine 1.02 MG/DL 1.22 MG/DL Estimat Glomerular Filtration 71 ML/MIN 57 ML/MIN Rate Random Glucose 86 MG/DL 93 MG/DL Calcium Level 9.2 MG/DL 8.8 MG/DL Stool C. difficile Toxin (PCR) NEGATIVE Stl C. difficile Toxin PRESUMPTIVE Epiderm 027 NEGATIVE Imaging Last Impressions Chest X-Ray 09/23/16 0600 Signed Impressions: Service Date/Time: Friday, September 23, 2016 04:13 - CONCLUSION: Improved pulmonary edema pattern since September 22. Elías Lopez MD Last Impressions Chest X-Ray 09/22/16 1121 Signed Impressions: Service Date/Time: Thursday, September 22, 2016 11:48 - CONCLUSION: Moderate congestive failure. 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 - He was found to have AMI and new systolic CHF of 25% with exacerbation/ pulmonary edema. - Cardiology and Hematology were consulted as it was felt that there may be possible connection to severe polycythemia. - Pt able to be weaned off BiPAP and off NC and currently on RA - Pt is on BB/PRICE/ASA/Effient. - Pts BP has been quite low this morning. - Decrease Lasix dose to 20mg po daily - Phlebotomies per hematology. Hgb improved and down to 15 - Check CXR and BNP today - Pt to have Life Vest placed prior to discharge. - He will need outpt ischemic workup in the next 3-6 weeks, once the effects of the testosterone has worn off, per discussion between Dr. Hodgson and Dr. Quinones today. - Yesterday pt had diarrhea which has improved today. Stool were negative for C. diff. - Increase activity. - Pt is very anxious for discharge, BP needs to be more stable prior to discharge. Will re-evaluate this afternoon. (2) Systolic CHF Status: Acute Plan: - See above (3) Pulmonary edema Status: Acute Plan: - See above (4) Polycythemia, secondary Status: Chronic Plan: - See above (5) Diarrhea Status: Acute Plan: - See above Assessment and Plan Patient examined. Assessment and plan formulated with Serene Kothari PA-C. I agree with the above. Case d/w Dr. Quinones. Will wait to perform LHC, until off testosterone for a few weeks. Pt will need life vest prior to discharge. Pt's blood pressure now trending hypotensive. Pt on lasix d/t volume overload/SOB on admission. Obtain repeat CXR and BNP. Decrease lasix to daily. stop lisinopril. Problem Qualifiers (1) Pulmonary edema: Qualified Code: J81.0 - Acute pulmonary edema Serene Kothari Sep 25, 2016 10:35 Jerald Hodgson DO Sep 25, 2016 10:46
--- NOTE | 2016-09-25 14:20 | RADRPT ---
EXAM DATE/TIME: 09/25/2016 14:06 [facility] COMPARISON: CHEST SINGLE AP, September 23, 2016, 4:13. INDICATIONS : Short of breath. MEDICAL HISTORY : Congestive heart failure. SURGICAL HISTORY : None. ENCOUNTER: Subsequent ACUITY: 3 days PAIN SCORE: 0/10 LOCATION: Bilateral chest FINDINGS: The heart is mildly enlarged. There are small bilateral effusions. There is mild interstitial promine nce. The examination did suggest a mild congestive failure. Changes appear similar to previous dated 09/23/16. The visualized bony structures are intact. CONCLUSION: 1. Stable compared to previous exam. Gigi Abrams MD on September 25, 2016 at 14:16 Board Certified Radiologist. This report was verified electronically.
[2016-09-25] MEDS: ATORVASTATIN 40 MG TAB PO SCH (19:56)
[2016-09-26] VITALS (17 sets, daily range): BP systolic 84–113; BP diastolic 53–73; PULSE 67–115; RESP 20; TEMP 97.3–98.6; O2SAT 96–98
[2016-09-26] MEDS: ENOXAPARIN SODIUM 120 MG/0.8 ML SYRINGE SQ SCH ×2 (02:59→13:48)
[2016-09-26] MEDS: ACETAMINOPHEN/HYDROcodone 325 MG/7.5 MG TAB PO PRN (03:02)
[2016-09-26] MEDS ORDERED: FUROSEMIDE 20 MG TAB PO SCH (09:00)
[2016-09-26] MEDS ORDERED: POTASSIUM CHLORIDE 10 MEQ CONTROLLED RELEASE TAB PO SCH (09:00)
[2016-09-26] MEDS: HYDROCORTISONE ACETATE 25 MG SUPP RECTAL SCH (09:00)
[2016-09-26] MEDS: ASPIRIN 325 MG TAB PO SCH (10:18)
[2016-09-26] MEDS: PANTOPRAZOLE SOD 40 MG DELAYED RELEASE TAB PO SCH (10:18)
[2016-09-26] MEDS: PRASUGREL 10 MG TAB PO SCH (10:19)
[2016-09-26] MEDS: SODIUM CHLORIDE 0.9% FLUSH 10 ML FLUSH IV FLUSH SCH (10:20)
[2016-09-26] MEDS: OXYBUTYNIN CHLORIDE 5 MG TAB PO SCH (10:20)
[2016-09-26] MEDS: CARVEDILOL 3.125 MG TAB PO SCH (10:20)
[2016-09-26 12:22] LABS: AUTOMATED NEUTROPHIL # 5.2 TH/MM3 (1.8-7.7); BASOPHIL % 0.6 % (0.0-2.0); EOSINOPHIL # 0.1 TH/MM3 (0-0.4); EOSINOPHIL % 1.4 % (0.0-4.0); HEMATOCRIT 47.7 % (39.0-51.0); HEMO FLAGS DIFF FINAL; LYMPH % 18.4 % (9.0-44.0); LYMPHOCYTE # 1.5 TH/MM3 (1.0-4.8); MEAN CELL VOLUME 91.8 FL (80.0-100.0); MEAN CORPUSCULAR HEMOGLOBIN 29.5 PG (27.0-34.0); MEAN CORPUSCULAR HGB CONC 32.2 % (32.0-36.0); MONO % 13.9 % (0.0-8.0); NEUT % 65.7 % (16.0-70.0); PLATELET COUNT 168 TH/MM3 (150-450); WHITE BLOOD COUNT 7.9 TH/MM3 (4.0-11.0)
[2016-09-26] MEDS ORDERED: POTA-243 PO (16:34)
[2016-09-26] MEDS ORDERED: CARV3.125 PO (16:34)
[2016-09-26] MEDS ORDERED: FURO20TA PO (16:34)
[2016-09-26] MEDS ORDERED: PRAS10TA PO (16:34)
[2016-09-26] MEDS ORDERED: ASPI325T PO (16:34)
[2016-09-26] MEDS ORDERED: ATOR40TA16 PO (16:34)
--- NOTE | 2016-09-27 08:36 | HHI.DS ---
Discharge Summary Admission Date Sep 22, 2016 at 12:18 Discharge Date: Sep 26, 2016 Admitting Diagnosis new onset CHF/respiratory distress/hypoxia (1) AMI (acute myocardial infarction) Diagnosis: Principal (2) Systolic CHF Diagnosis: Secondary (3) Pulmonary edema Diagnosis: Secondary (4) Polycythemia, secondary Diagnosis: Secondary (5) Diarrhea Diagnosis: Secondary Consultants Dr. Prisca Quinones - Cardiology Dr. Jaron Serna - Hematology Brief History Mr. 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 He states that yesterday he started noticing more SOB with exertion. Then today he was doing water aerobics when he started having worsening shortness of breath, coughing, wheezing. This prompted [facility] to be called and pt was brought to the ED for further workup. Chest x-ray showed bilateral pulmonary edema. ABG noted pCO2 56, pH 7.31. Pt was given Lasix 40mg IV in the ED and patient was put on BiPAP. Cultures were drawn and antibiotics were given in the ED secondary to elevated WBC count. Patient has no previous history of CHF. Upon arrival his HR was noted to be in the 130-140's and currently on telemetry he is in the 110's but appears to be A. flutter. Pt denies any recent fevers, cough, congestion, chest pains, or palpitations. He denies any previous history of shortness of breath. He has been sleeping on one to 2 pillows recently. He has had some weight loss over the last 6 months which has been intentional. He reports having lost 25-30lbs. He does not feel that his legs are swollen. He reports that with regard to his polycythemia he had been referred for phlebotomy but that not followup on that. CBC/BMP: 09/26/16 1205 09/25/16 0500 Significant Findings Laboratory Tests Test 09/25/16 09/26/16 05:00 12:05 Estimat Glomerular Filtration 57 ML/MIN (>89) Rate B-Type Natriuretic Peptide 268 PG/ML (0-100) Monocytes (%) (Auto) 13.9 % (0.0-8.0) Monocytes # (Auto) 1.1 TH/MM3 (0-0.9) Imaging Last Impressions Chest X-Ray 09/25/16 0000 Signed Impressions: Service Date/Time: Sunday, September 25, 2016 14:06 - CONCLUSION: 1. Stable compared to previous exam. Gigi Abrams MD PE at Discharge General: NAD, AAOx3 Chest: CTA Cardiac: Regular Abd: +BS, soft ND/NT Ext: Mild bilateral LE edema Hospital Course Pt is 76 yo with polycythemia believed secondary to testosterone. He presented to the ED with respiratory distress and pulmonary edema. He was found to have AMI and new systolic CHF of 25% with exacerbation/pulmonary edema. Cardiology and Hematology were consulted as it was felt that there may be possible connection to severe polycythemia. Pt was started on BB/PRICE/ASA/Effient. He was treated with IV Lasix for the CHF exacerbation. Blood counts much improved after 3 phlebotomies. It was felt that likely the elevated hemoglobin is due to the testosterone stimulating the bone marrow, however Hematology ordered a KINGSLEY- 2 and results are still pending at discharge. Pt was able to be weaned off BiPAP and off NC and then to RA. The few days prior to discharge the pts BP was quite low. Medication adjustments were made. The Lasix dose was decreased to 20mg po daily. Lisinopril was stopped on 09/25. He was not ever symptomatic with the lower BP with any dizziness or lightheadedness. Pt was ambulating without difficulty. Pts BP while still low/normal seemed to stabilize and he insisted on being discharged to home on 09/26. Pt did have some issues with diarrhea during admission which improved prior to discharge. Stool were negative for C. diff. Pt had Life Vest placed prior to discharge. He will need outpt ischemic workup in the next 3-6 weeks, once the effects of the testosterone has worn off, per discussion between Dr. Hodgson and Dr. Quinones on 09/25. He is not to resume his testosterone injections. Pt will followup with Dr. Serna for the results of his pending labs and monitoring of his blood counts. New Medications Include: -ASA 325mg po daily -Effient 10mg po daily, pt was given a discount coupon for this medication. -Atorvastatin 40mg po HS -Coreg 3.125mg po BID -Lasix 20mg po daily -KCL 10meq po daily Pt will followup with Dr. Quinones in 2 weeks Pt will followup with Dr. Whitley in 1 week He will followup with Dr. Serna in 3 weeks. Pt Condition on Discharge: Stable Discharge Disposition: Discharge Home Discharge Instructions DIET: Follow Instructions for: As Tolerated, No Restrictions Activities you can perform: Regular-No Restrictions Follow up Referrals: Cardiology - [address] Prisca Quinones Oncology - [address] Jaron Serna PCP Follow-up - [address] Rafael Whitley New Medications: Defibrillator Jacket (Defibrillator Jacket) 1 Ea Device 1 EA EXTERNAL ONCE Energy = 150 Joules; VT Threshold = 150 BPM; VF Threshold = 200 BPM Use up to 90 days only cardiomyopathy, EF 25% #1 EA Aspirin (Aspirin) 325 Mg Tab 325 MG PO DAILY CAD #28 Ref 0 TAB Atorvastatin (Atorvastatin) 40 Mg Tab 40 MG PO HS cad #30 Ref 0 TAB Carvedilol (Coreg) 3.125 Mg Tab 3.125 MG PO Q12HR CAD #60 TAB Furosemide (Furosemide) 20 Mg Tab 20 MG PO DAILY chf #30 Ref 0 TAB Potassium Chloride ER (Klor-Con 10) 10 Meq Tab 10 MEQ PO DAILY lasix treatment #30 Ref 0 TAB Prasugrel (Effient) 10 Mg Tab 10 MG PO DAILY CAD #30 Ref 0 TAB Continued Medications: Oxybutynin (Ditropan) 5 Mg Tab 5 MG PO BID Urinary Symptom Managemen Ref 0 TAB Tramadol (Tramadol) 50 Mg Tab 50 MG PO Q8HR PRN PAIN SCALE 1 TO 5 Ref 0 TAB Discontinued Medications: Testosterone Cypionate Inj (Testosterone Cypionate Inj) 100 Mg/Ml Inj 200 MG IM [id number] Hormone Replacement Ref 0 INJECTION Additional Information Patient examined. Assessment and plan formulated with Serene Kothari PA-C. I agree with the above. Serene Kothari Sep 27, 2016 08:36 Jerald Hodgson DO Sep 29, 2016 23:52
== END 2016-09-26 18:10 | disposition home or self-care (01) | DRG 280 ==
LOC: NEPE 11:14 → NEDA 12:18 → HIMN 15:30 → HCIS 09-23 22:53
PROVIDERS: ADMIT Hospitalist; ATTEND Hospitalist
PROC: 5A09457 Assistance with Respiratory Ventilation, 24-96 Consecutive Hours, Continuous Positive Airway Pressure (ICD-10-PCS; principal; 2016-09-22)
DX: I21.3 ST elevation (STEMI) myocardial infarction of unspecified site (principal); I50.21 Acute systolic (congestive) heart failure; I11.0 Hypertensive heart disease with heart failure; J44.9 Chronic obstructive pulmonary disease, unspecified; D75.1 Secondary polycythemia; E29.1 Testicular hypofunction; E78.5 Hyperlipidemia, unspecified; I25.5 Ischemic cardiomyopathy; I49.9 Cardiac arrhythmia, unspecified; R09.02 Hypoxemia; Z87.891 Personal history of nicotine dependence; Z96.642 Presence of left artificial hip joint; R19.7 Diarrhea, unspecified
CPT/HCPCS: 36600; 71010; 71020; 76937; 80048; 80053; 80061; 82550; 82552; 82805; 83605; 83735; 83880; 84484; 85025; 85027; 85610; 85730; 87040; 87077; 87186; 87205; 87493; 87641; 93005; 93306; 94003; 96374; J0456; J0696; J1650; J1940; J7050